=== PATIENT | male | born 1955 | race Caucasian/White ===

== ENCOUNTER → 2017-03-22 | Outpatient (CLI) | payer OTHER ==
--- NOTE | 2017-03-22 23:11 | MR ---
EXAMINATION TYPE: MR brain wo/w con DATE OF EXAM: 03/22/2017 COMPARISON: NONE HISTORY: Frequent headaches, rt sided hearing loss, tinnitus TECHNIQUE: Multiplanar, multisequence images of the brain and brainstem is performed without and with IV contras t, utilizing 9 mL intravenous Gadavist . FINDINGS: Diffusion weighted images demonstrate no evidence of a recent infarct or other diffusion ab normality. There is no extra-axial fluid collection or significant white matter signal abnormality. The ventricular system and cisternal spaces are normal in size and appearance. The brain volume is age appropriate. Midline structures demonstrate normal morphology. The craniocervical junction appears within normal limits. Post contrast images demonstrate no abnormal enhancement. The dural venous sinuses appear pa tent. The visualized sinuses are clear and the globes are intact. No suspicious fluid signal there is seen at level of mastoid air cells bilaterally. IMPRESSION: No significant finding is seen to account for patient's symptoms.
== END | disposition home or self-care (01) ==
LOC: RADMRIMAIN 14:06
PROVIDERS: ATTEND Family Medicine
DX: H91.91 Unspecified hearing loss, right ear (principal)
CPT/HCPCS: 82565; 70553; 36415; A9581

== ENCOUNTER 2023-06-13 08:11 | Inpatient (IN) | payer MEDICARE, OTHER ==
[2023-06-13 09:17] LABS: INR 1.2 (<1.2); Partial Thromboplastin Time 24.2 sec (22.0-30.0); Prothrombin Time 12.9 sec (10.0-12.5)
[2023-06-13 09:24] LABS: ALT 15 U/L (4-49); AST 36 U/L (17-59); African American GFR (CKD) >90 (>60 ml/min/1.73 sqM); Albumin 3.1 g/dL (3.5-5.0); Alkaline Phosphatase 75 U/L (38-126); Anion Gap 4 mmol/L; Blood Urea Nitrogen 7 mg/dL (9-20); Calcium 8.3 mg/dL (8.4-10.2); Carbon Dioxide 24 mmol/L (22-30); Chloride 104 mmol/L (98-107); Glucose 101 mg/dL (74-99); Magnesium 1.6 mg/dL (1.6-2.3); Non-African American GFR(CKD) >90 (>60 ml/min/1.73 sqM); Potassium 3.4 mmol/L (3.5-5.1); Sodium 132 mmol/L (137-145); Total Bilirubin 1.5 mg/dL (0.2-1.3); Total Protein 5.3 g/dL (6.3-8.2)
--- NOTE | 2023-06-13 09:29 | XR ---
EXAMINATION TYPE: XR chest 2V DATE OF EXAM: 06/13/2023 COMPARISON: 09/17/2010 TECHNIQUE: PA and lateral views submitted. HISTORY: Weakness FINDINGS: The lungs are clear and there is no pneumothorax, pleural effusion, or focal pneumonia. Heart size normal and no overt failure. Osseous structures demonstrate hypertrophic and degenerative changes of the spine. Hyperinflation suggestive of COPD. Diffuse osteopenia throughout the shoulder. IMPRESSION: 1. No acute process.
[2023-06-13 09:44] LABS: Anisocytosis Moderate; Basophils % (A) 0 %; Eosinophils # (A) 0.2 k/uL (0-0.7); Eosinophils % (A) 4 %; Lymphocytes # (A) 1.5 k/uL (1.0-4.8); Lymphocytes % (A) 34 %; MCHC 35.1 g/dL (31.0-37.0); MCV 129.5 fL (80.0-100.0); Macrocytosis Marked; Mean Platelet Volume 9.5; Monocytes # (A) 0.2 k/uL (0-1.0); Monocytes % (A) 4 %; Neutrophils # (A) 2.3 k/uL (1.3-7.7); Neutrophils % (A) 56 %; Platelet Count 142 k/uL (150-450); RBC 1.34 m/uL (4.30-5.90); WBC 4.2 k/uL (3.8-10.6)
[2023-06-13 09:45] LABS: MCH 45.4 pg (25.0-35.0)
[2023-06-13 09:46] LABS: HCT 17.3 % (39.0-53.0); HGB 6.1 gm/dL (13.0-17.5)
[2023-06-13 10:14] LABS: Poikilocytosis (M) Present; RBC Fragments Present; Tear Drop Cells Present
--- NOTE | 2023-06-13 10:27 | ED ---
General Adult HPI - General Chief complaint: Recheck/Abnormal Lab/Rx Stated complaint: abn labs Time Seen by Provider: 06/13/23 08:20 Source: patient, RN notes reviewed, old records reviewed Mode of arrival: wheelchair Limitations: no limitations - History of Present Illness Initial comments: 67-year-old male presents emergency department with family for evaluation of abnormal labs. Patient states that he went to urgent care/new PCP on Monday as family is concerned about his increasing weakness he received a phone call today stating that his hemoglobin was very low. Patient states he has had no rectal bleeding denies any melanotic stools. Denies chest pain shortness of breath he states he is very weak and complains of leg pain, neuropathy type pain. Patient states that he used to be on medications for his cardiac stents, hypertension hyperlipidemia but states that has not seen a PCP in several years. - Related Data Home Medications Medication Instructions Recorded Confirmed No Known Home Medications 06/13/23 06/13/23 Allergies Allergy/AdvReac Type Severity Reaction Status Date / Time No Known Allergies Allergy Verified 06/13/23 10:32 Review of Systems ROS Statement: Those systems with pertinent positive or pertinent negative responses have been documented in the HPI. ROS Other: All systems not noted in ROS Statement are negative. Past Medical History Past Medical History: GERD/Reflux, Hyperlipidemia, Hypertension, Myocardial Infarction ([place]) Additional Past Medical History / Comment(s): ARTHRITIS Last Myocardial Infarction Date:: 2011 History of Any Multi-Drug Resistant Organisms: None Reported Past Surgical History: Heart Catheterization With Stent Additional Past Surgical History / Comment(s): HEART STENTS X2 Additional Past Anesthesia/Blood Transfusion Reaction / Comment(s): NEVER HAS HAD GENERAL ANESTHESIA Date of Last Stent Placement:: 2011 Past Alcohol Use History: None Reported Past Drug Use History: None Reported - Past Family History Father Family Medical History: Cancer Additional Family Medical History / Comment(s): COLON General Exam Limitations: no limitations General appearance: alert, in no apparent distress Head exam: Present: atraumatic, normocephalic, normal inspection Eye exam: Present: normal appearance, PERRL, EOMI. Absent: scleral icterus, conjunctival injection, periorbital swelling ENT exam: Present: normal exam, normal oropharynx, mucous membranes moist Neck exam: Present: normal inspection, full ROM. Absent: tenderness, mening ismus, lymphadenopathy Respiratory exam: Present: normal lung sounds bilaterally. Absent: respiratory distress, wheezes, rales, rhonchi, stridor Cardiovascular Exam: Present: regular rate, normal rhythm, normal heart sounds. Absent: systolic murmur, diastolic murmur, rubs, gallop, clicks GI/Abdominal exam: Present: soft, normal bowel sounds. Absent: distended, tenderness, guarding, rebound, rigid Course Vital Signs 06/13/23 06/13/23 06/13/23 08:12 12:41 12:50 Temperature 98.6 F 99.0 F 98.3 F Pulse Rate 89 77 75 Respiratory 16 16 13 Rate Blood Pressure 126/70 122/61 121/57 O2 Sat by Pulse 98 99 98 Oximetry 06/13/23 06/13/23 06/13/23 12:56 13:01 15:07 Temperature 98.8 F 98.2 F Pulse Rate 75 75 73 Respiratory 14 14 14 Rate Blood Pressure 119/57 124/59 119/51 O2 Sat by Pulse 97 99 98 Oximetry EKG Findings - EKG Comments: EKG Findings:: EKG performed at 8: 49 sinus rhythm, noted PVCs nonspecific ST changes noted rate of 84 IN 154 QRS 88 QT/QTc 375/417 - EKG Results: EKG: interpreted by LOVELY Medical Decision Making - Medical Decision Making Was pt. sent in by a medical professional or institution (KAREN Nye, WORT EXTRACTOR, urgent care, hospital, or long-term...) When possible be specific @ -Urgent care Did you speak to anyone other than the patient for history (EMS, parent, family, police, friend...)? What history was obtained from this source @ -No Did you review nursing and triage notes (agree or disagree)? Why? @ -I reviewed and agree with nursing and triage notes Were old charts reviewed (outside hosp., previous admission, EMS record, old EKG, old radiological studies, urgent care reports/EKG's, long-term records)? Report findings @ -No old charts were reviewed Differential Diagnosis (chest pain, altered mental status, abdominal pain women, abdominal pain men, vaginal bleeding, weakness, fever, dyspnea, syncope, headache, dizziness, GI bleed, back pain, seizure, CVA, palpatations, mental health, musculoskeletal)? @ -Differential Weakness: Hypoglycemia, shock, sepsis, hyponatremia, anemia, infection, [place], ETOH, adverse medicine reaction, overdose, stroke, this is not meant to be an all-inclusive list. EKG interpreted by me (3pts min.). @ -As above X-rays interpreted by me (1pt min.). @ -Chest X shows chronic changes CT interpreted by me (1pt min.). @ -CT ab pelvis showing no acute intra-abdominal process U/S interpreted by me (1pt. min.). @ -None done What testing was considered but not performed or refused? (CT, X-rays, U/S, la bs)? Why? @ -None What meds were considered but not given or refused? Why? @ -None Did you discuss the management of the patient with other professionals (professionals i.e. , PA, WORT EXTRACTOR, lab, RT, psych nurse, perinatal social worker, regional guide, teacher, operations officer trust department, case liner)? Give summary @ -Dr. Dutton for admission Was smoking cessation discussed for >3mins.? @ -No Was critical care preformed (if so, how long)? @ -35 minutes Were there social determinants of health that impacted care today? How? (H omelessness, low income, unemployed, alcoholism, drug addiction, transportation, low edu. Level, literacy, decrease access to med. care, residential, rehab)? @ -No Was there de-escalation of care discussed even if they declined (Discuss DNR or withdrawal of care, Hospice)? DNR status @ -No What co-morbidities impacted this encounter? (DM, HTN, Smoking, COPD, CAD, Cancer, CVA, ARF, Chemo, Hep., AIDS, mental health diagnosis, sleep apnea, morbid obesity)? @ -None Was patient admitted / discharged? Hospital course, mention meds given and route, prescriptions, significant lab abnormalities, going to OR and other pertinent info. @ -Head of patient's 5 significant anemia Hemoccult negative patient has ab normal differential on CBC concerning for mild proliferate or mild dysplastic disease Undiagnosed new problem with uncertain prognosis? @ -No Drug Therapy requiring intensive monitoring for toxicity (Heparin, Nitro, Insulin, Cardizem)? @ -No Were any procedures done? @ -No Diagnosis/symptom? @ -Anemia Acute, or Chronic, or Acute on Chronic? @ -Acute Uncomplicated (without systemic symptoms) or Complicated (systemic symptoms)? @ -Complicated Side effects of treatment? @ -No Exacerbation, Progression, or Severe Exacerbation? @ -No Poses a threat to life or bodily function? How? (Chest pain, [place], [place], pneumonia, PE, COPD, DKA, ARF, appy, cholecystitis, CVA, Diverticulitis, Homicidal, Suicidal, threat to staff... and all critical care pts) @ -Yes anemia - Lab Data Result diagrams: 06/13/23 08:52 06/13/23 08:52 Lab Results 06/13/23 06/13/23 06/13/23 Range/Units 08:48 08:49 08:52 WBC 4.2 (3.8-10.6) k/uL RBC 1.34 L (4.30-5.90) m/uL Hgb 6.1 L* (13.0-17.5) gm/dL Hct 17.3 L* (39.0-53.0) % MCV 129.5 H (80.0-100.0) fL MCH 45.4 H (25.0-35.0) pg MCHC 35.1 (31.0-37.0) g/dL RDW 22.0 H (11.5-15.5) % Plt Count 142 L (150-450) k/uL MPV 9.5 Neutrophils % 56 % Lymphocytes % 34 % Monocytes % 4 % Eosinophils % 4 % Basophils % 0 % Neutrophils # 2.3 (1.3-7.7) k/uL Lymphocytes # 1.5 (1.0-4.8) k/uL Monocytes # 0.2 (0-1.0) k/uL Eosinophils # 0.2 (0-0.7) k/uL Basophils # 0.0 (0-0.2) k/uL Manual Slide Review Performed Poikilocytosis (manual Present Anisocytosis Moderate Macrocytosis Marked A Tear Drop Cells Present Fragmented RBCs Present PT (10.0-12.5) sec INR (<1.2) APTT (22.0-30.0) sec Sodium (137-145) mmol/L Potassium (3.5-5.1) mmol/L Chloride (98-107) mmol/L Carbon Dioxide (22-30) mmol/L Anion Gap mmol/L BUN (9-20) mg/dL Creatinine (0.66-1.25) mg/dL Est GFR (CKD-EPI)AfAm (>60 ml/min/1.73 sqM) Est GFR (CKD-EPI)NonAf (>60 ml/min/1.73 sqM) Glucose (74-99) mg/dL Plasma Lactic Acid Viet (0.7-2.0) mmol/L Calcium (8.4-10.2) mg/dL Magnesium (1.6-2.3) mg/dL Total Bilirubin (0.2-1.3) mg/dL AST (17-59) U/L ALT (4-49) U/L Alkaline Phosphatase (38-126) U/L Troponin I (0.000-0.034) ng/mL Total Protein (6.3-8.2) g/dL Albumin (3.5-5.0) g/dL Stool Occult Blood (Negative) Blood Type O Positive Blood Type Confirm O Positive Blood Type Recheck No Previous Record Bld Type Recheck Status CABO Indicated Antibody Screen NEGATIVE Crossmatch See Detail Spec Expiration Date 06/16/2023 - 235106/13/23 06/13/23 06/13/23 Range/Units 08:52 08:52 08:52 WBC (3.8-10.6) k/uL RBC (4.30-5.90) m/uL Hgb (13.0-17.5) gm/dL Hct (39.0-53.0) % MCV (80.0-100.0) fL MCH (25.0-35.0) pg MCHC (31.0-37.0) g/dL RDW (11.5-15.5) % Plt Count (150-450) k/uL MPV Neutrophils % % Lymphocytes % % Monocytes % % Eosinophils % % Basophils % % Neutrophils # (1.3-7.7) k/uL Lymphocytes # (1.0-4.8) k/uL Monocytes # (0-1.0) k/uL Eosinophils # (0-0.7) k/uL Basophils # (0-0.2) k/uL Manual Slide Review Poikilocytosis (manual Anisocytosis Macrocytosis Tear Drop Cells Fragmented RBCs PT 12.9 H (10.0-12.5) sec INR 1.2 H (<1.2) APTT 24.2 (22.0-30.0) sec Sodium 132 L (137-145) mmol/L Potassium 3.4 L (3.5-5.1) mmol/L Chloride 104 (98-107) mmol/L Carbon Dioxide 24 (22-30) mmol/L Anion Gap 4 mmol/L BUN 7 L (9-20) mg/dL Creatinine 0.55 L (0.66-1.25) mg/dL Est GFR (CKD-EPI)AfAm >90 (>60 ml/min/1.73 sqM) Est GFR (CKD-EPI)NonAf >90 (>60 ml/min/1.73 sqM) Glucose 101 H (74-99) mg/dL Plasma Lactic Acid Viet 1.6 (0.7-2.0) mmol/L Calcium 8.3 L (8.4-10.2) mg/dL Magnesium 1.6 (1.6-2.3) mg/dL Total Bilirubin 1.5 H (0.2-1.3) mg/dL AST 36 (17-59) U/L ALT 15 (4-49) U/L Alkaline Phosphatase 75 (38-126) U/L Troponin I (0.000-0.034) ng/mL Total Protein 5.3 L (6.3-8.2) g/dL Albumin 3.1 L (3.5-5.0) g/dL Stool Occult Blood (Negative) Blood Type Blood Type Confirm Blood Type Recheck Bld Type Recheck Status Antibody Screen Crossmatch Spec Expiration Date 06/13/23 06/13/23 Range/Units 08:52 14:03 WBC (3.8-10.6) k/uL RBC (4.30-5.90) m/uL Hgb (13.0-17.5) gm/dL Hct (39.0-53.0) % MCV (80.0-100.0) fL MCH (25.0-35.0) pg MCHC (31.0-37.0) g/dL RDW (11.5-15.5) % Plt Count (150-450) k/uL MPV Neutrophils % % Lymphocytes % % Monocytes % % Eosinophils % % Basophils % % Neutrophils # (1.3-7.7) k/uL Lymphocytes # (1.0-4.8) k/uL Monocytes # (0-1.0) k/uL Eosinophils # (0-0.7) k/uL Basophils # (0-0.2) k/uL Manual Slide Review Poikilocytosis (manual Anisocytosis Macrocytosis Tear Drop Cells Fragmented RBCs PT (10.0-12.5) sec INR (<1.2) APTT (22.0-30.0) sec Sodium (137-145) mmol/L Potassium (3.5-5.1) mmol/L Chloride (98-107) mmol/L Carbon Dioxide (22-30) mmol/L Anion Gap mmol/L BUN (9-20) mg/dL Creatinine (0.66-1.25) mg/dL Est GFR (CKD-EPI)AfAm (>60 ml/min/1.73 sqM) Est GFR (CKD-EPI)NonAf (>60 ml/min/1.73 sqM) Glucose (74-99) mg/dL Plasma Lactic Acid Viet (0.7-2.0) mmol/L Calcium (8.4-10.2) mg/dL Magnesium (1.6-2.3) mg/dL Total Bilirubin (0.2-1.3) mg/dL AST (17-59) U/L ALT (4-49) U/L Alkaline Phosphatase (38-126) U/L Troponin I <0.012 (0.000-0.034) ng/mL Total Protein (6.3-8.2) g/dL Albumin (3.5-5.0) g/dL Stool Occult Blood Negative (Negative) Blood Type Blood Type Confirm Blood Type Recheck Bld Type Recheck Status Antibody Screen Crossmatch Spec Expiration Date Critical Care Time Critical Care Time: Yes Total Critical Care Time: 35 Disposition Clinical Impression: Anemia, Weakness Disposition: ADMITTED IP TO THIS [facility] Condition: Fair Time of Disposition: 15:11
[2023-06-13] MEDS: HYDROmorphone 0.5 MG/0.5 ML SYRINGE IVP STA (11:18)
--- NOTE | 2023-06-13 12:19 | CT ---
EXAMINATION TYPE: CT abdomen pelvis w con CT DLP: 1194 mGycm, Automated exposure control for dose reduction was used. DATE OF EXAM: 06/13/2023 11:08 AM COMPARISON: None. CLINICAL INDICATION:Male, 67 years old with history of pain; abdominal pain. TECHNIQUE: Axial CT abdomen pelvis w con;Sagittal and coronal reformats were created on a separate w orkstation. Contrast used:100 mL of Isovue 300 with IV Contrast, (none if empty) Oral contrast used: without Oral Contrast (none if empty) FINDINGS: LOWER CHEST: Unremarkable ABDOMEN LIVER: Unremarkable GALLBLADDER AND BILE DUCTS: Unremarkable. PANCREAS: Unremarkable. SPLEEN: Unremarkable. ADRENAL GLANDS: Unremarkable. KIDNEYS AND URETERS: No benign-appearing cysts and require no follow-up. Otherwise no evidence of hyd ronephrosis or renal calculus. The ureters are unremarkable. PELVIS BLADDER: Unremarkable REPRODUCTIVE: Enlarged prostate ABDOMEN & PELVIS STOMACH AND BOWEL: Stomach and duodenum are unremarkable. Fluid-filled loops of bowel measuring up to 2.4 cm with questionably enhancing wall may indicate a mild enteritis.. No evidence of bowel obst ruction. PERITONEUM/RETROPERITONEUM: No evidence of pneumoperitoneum or free fluid. VASCULATURE: No evidence of aortic aneurysm. MUSCULOSKELETAL: No acute osseous abnormalities LYMPH NODES: No gross evidence for lymphadenopathy. SOFT TISSUE/ABDOMINAL WALL: Unremarkable IMPRESSION: 1. No definite CT evidence of acute process. 2. Nondilated, scattered, fluid-filled loops of bowel measuring up to 2.4 cm with questionably enhan cing wall may indicate a mild enteritis..
[2023-06-13] MEDS ORDERED: ACETAMINOPHEN TAB 325 MG TAB PO PRN (15:11)
[2023-06-13] MEDS ORDERED: NALOXONE 0.4 MG/ML 1 ML VIAL IV PRN (15:11)
[2023-06-13] MEDS ORDERED: ONDANSETRON 4 MG/2 ML VIAL IVP PRN (15:11)
[2023-06-13] MEDS: HYDROmorphone 0.5 MG/0.5 ML SYRINGE IVP PRN (17:47)
[2023-06-13] MEDS ORDERED: NICOTINE GUM (POLACRILEX) 2 MG GUM BUCCAL PRN (19:36)
[2023-06-13] MEDS ORDERED: MELATONIN 3 MG TABLET PO PRN (19:36)
[2023-06-13] MEDS ORDERED: LORazepam 0.5 MG TAB PO PRN (19:37)
[2023-06-13] MEDS ORDERED: LORazepam 2 MG/ML INJ IV PRN (19:37)
[2023-06-13] MEDS ORDERED: LORazepam 1 MG TAB PO PRN ×3 (19:37)
--- NOTE | 2023-06-13 19:41 | P.HPIM ---
History of Present Illness H&P Date: 06/13/23 Patient is a 67-year-old male with hypertension, dyslipidemia, coronary artery disease status post stenting, and GERD who has not seen a PCP in several years prior to last week who presented to the hospital at the direction of his outpatient physician due to to low blood counts. On arrival to the ER here his vitals were within normal limits. Laboratory analysis included CBC, coagulation studies, CMP, and troponin which were remarkable for hemoglobin 6.1, hematocrit 17.3, platelet count of 142, INR 1.2, sodium 132, potassium 3.4, and bilirubin of 1.5. Fecal occult blood testing was negative. Patient underwent CT abdomen and pelvis which was unremarkable for nondilated fluid-filled bowel loops measuring up to 2.4 cm possible enhancing wall indicating enteritis. Chest x- ray demonstrated no acute process. EKG demonstrated sinus rhythm at a rate of [address]-T wave changes. Patient was ordered 1 unit of packed red blood cells. He was given 1 dose of Dilaudid. Arrangements were made for admission. Patient seen and examined at bedside. He reports that he is no longer sees a doctor because he was frustrated that nobody could figure out the pain in his legs. He reports that for the last several years he has had pain in his legs. He has decreased sensation generally but when he gets up and tries to walk he gets excruciating pain in his legs and into his bones. He can walk to the bathroom and then back to his bedroom until becomes so unbearable that he can no longer move. He states that he does not lift his legs over the side of the bed long enough to know if they would become purple. He has not left his house in the last year and a half to the excruciating pain from walking. His daughter has been caring for him. She became so concerned about his lack of mobility that she subsequently brought him to urgent care on Monday. He reports that he sometimes gets lightheaded and short of breath when he walks. He denies any syncopal episodes or overt chest pain. He does suffer from GERD and has acid reflux if he does not take his Prilosec at night which he has been taking [id number]. He does drink approximately 1 pint daily and smokes 1 pack of cigarettes. He has not had a colonoscopy recently. He denies any bright red blood in his stools or dark tarry stools. He denies any known history of anemia. He is very frustrated with his overall state of health and the pain in his legs. He does have a history of coronary artery disease in the past. But no longer is taking medications for this. Vital signs reviewed General: nontoxic, no distress, appears older than stated age Derm: warm, dry, skin thickening bilateral lower extremities, redness bilateral toes, loss of hair bilateral lower extremities Eyes: EOMI, no lid lag, anicteric sclera, pupils equal round reactive to light ENT: Nose and ears atraumatic Cardiovascular: S1S2 reg, no murmur, no edema, nonpalpable dorsalis pedis and posterior tibial pulses, dopplerable dorsalis pedis pulses bilaterally Lungs: clear to auscultation bilateral, no rhonchi, no rales, no wheeze, no accessory muscle use Abdominal: soft, nontender to palpation, no guarding Ext: no gross muscle atrophy, no contractures Neuro: CN II-XII grossly intact, No focal neuro deficits Psych: Alert, oriented, appropriate affect Assessment/Plan: Symptomatic anemia GERD Suspect alcoholic gastritis based on CT scan Claudication suspect severe peripheral arterial disease Intractable pain when standing -Start IV Protonix 40 mg twice daily -Consult oncology -Consult surgery regarding possible EGD -Check retook, haptoglobin, LDH, ferritin, iron studies, B12, folic acid, and TSH -Status post 1 unit of packed red blood cells. Recheck CBC now and in a.m. -Consult vascular surgery -At this time will avoid aspirin due to possible occult GI bleeding -Start Neurontin 300 mg oral 3 times daily, [place] 5/325 every 4 hours as needed for moderate pain, and Dilaudid 0.5 mg every 3 hours as needed for severe pain Nicotine dependency -Nicotine patch 14 mcg daily, nicotine gum 2 mg every 2 hours as needed for nicotine cravings Alcohol dependency -Start oral CIWA protocol with Ativan dosing per CIWA scale, thiamine 100 mg daily, folic acid 1 mg daily History of but not currently taking medications for: Hypertension Dyslipidemia Coronary artery disease status post stenting Imaging: As per HPI Data Review: As per HPI The patient is admitted with an anticipated greater than 2 midnight stay for evaluation of symptomatic anemia. Surrogate decision-maker: Chiquita DVT prophylaxis: Heparin Anticipated discharge date: Pending clinical course Anticipated discharge place: Pending clinical course This dictation was prepared using [employer] voice recognition software. Though every attempt is made to correct errors during dictation some may still exist. Past Medical History Past Medical History: GERD/Reflux, Hyperlipidemia, Hypertension, Myocardial Infarction ([place]) Additional Past Medical History / Comment(s): ARTHRITIS Last Myocardial Infarction Date:: 2011 History of Any Multi-Drug Resistant Organisms: None Reported Past Surgical History: Heart Catheterization With Stent Additional Past Surgical History / Comment(s): HEART STENTS X2 Additional Past Anesthesia/Blood Transfusion Reaction / Comment(s): NEVER HAS HAD GENERAL ANESTHESIA Date of Last Stent Placement:: 2011 Smoking Status: Current every day smoker Past Alcohol Use History: Daily Past Drug Use History: None Reported - Past Family History Father Family Medical History: Cancer Additional Family Medical History / Comment(s): COLON Medications and Allergies Home Medications Medication Instructions Recorded Confirmed Type No Known Home Medications 06/13/23 06/13/23 History Allergies Allergy/AdvReac Type Severity Reaction Status Date / Time No Known Allergies Allergy Verified 06/13/23 10:32 Physical Exam Osteopathic Statement: *. No significant issues noted on an osteopathic structural exam other than those noted in the History and Physical/Consult. Vitals: Vital Signs Temp Pulse Resp BP Pulse Ox 06/13/23 16:00 98.1 F 68 11 L 134/60 99 06/13/23 15:07 73 14 119/51 98 06/13/23 15:00 73 7 L 119/51 98 06/13/23 14:00 72 16 126/58 97 06/13/23 13:01 98.2 F 75 14 124/59 99 06/13/23 13:00 74 7 L 119/57 96 06/13/23 12:56 98.8 F 75 14 119/57 97 06/13/23 12:50 98.3 F 75 13 121/57 98 06/13/23 12:41 99.0 F 77 16 122/61 99 06/13/23 08:12 98.6 F 89 16 126/70 98 Intake and Output 06/13/23 06/13/23 06/13/23 06:59 14:59 22:59 Intake Total 0 276 Balance 0 276 Intake: Blood Product 0 276 Rc Pheresis 2 As3 Unit 0 276 [id number] Other: Weight 81.647 kg Results CBC & Chem 7: 06/13/23 08:52 06/13/23 08:52 Labs: Abnormal Lab Results - Last 24 Hours (Table) 06/13/23 06/13/23 06/13/23 Range/Units 08:48 08:52 08:52 RBC 1.34 L (4.30-5.90) m/uL Hgb 6.1 L* (13.0-17.5) gm/dL Hct 17.3 L* (39.0-53.0) % MCV 129.5 H (80.0-100.0) fL MCH 45.4 H (25.0-35.0) pg RDW 22.0 H (11.5-15.5) % Plt Count 142 L (150-450) k/uL Macrocytosis Marked A PT 12.9 H (10.0-12.5) sec INR 1.2 H (<1.2) Sodium (137-145) mmol/L Potassium (3.5-5.1) mmol/L BUN (9-20) mg/dL Creatinine (0.66-1.25) mg/dL Glucose (74-99) mg/dL Calcium (8.4-10.2) mg/dL Total Bilirubin (0.2-1.3) mg/dL Total Protein (6.3-8.2) g/dL Albumin (3.5-5.0) g/dL Crossmatch See Detail 06/13/23 Range/Units 08:52 RBC (4.30-5.90) m/uL Hgb (13.0-17.5) gm/dL Hct (39.0-53.0) % MCV (80.0-100.0) fL MCH (25.0-35.0) pg RDW (11.5-15.5) % Plt Count (150-450) k/uL Macrocytosis PT (10.0-12.5) sec INR (<1.2) Sodium 132 L (137-145) mmol/L Potassium 3.4 L (3.5-5.1) mmol/L BUN 7 L (9-20) mg/dL Creatinine 0.55 L (0.66-1.25) mg/dL Glucose 101 H (74-99) mg/dL Calcium 8.3 L (8.4-10.2) mg/dL Total Bilirubin 1.5 H (0.2-1.3) mg/dL Total Protein 5.3 L (6.3-8.2) g/dL Albumin 3.1 L (3.5-5.0) g/dL Crossmatch
[2023-06-13 20:15] LABS: Anisocytosis Marked; HCT 22.6 % (39.0-53.0); HGB 7.5 gm/dL (13.0-17.5); MCH 40.1 pg (25.0-35.0); MCHC 33.3 g/dL (31.0-37.0); Macrocytosis Marked; Platelet Count 138 k/uL (150-450); Poikilocytosis Slight; RBC 1.88 m/uL (4.30-5.90); Reticulocyte % 0.7 % (0.5-2.0); WBC 4.2 k/uL (3.8-10.6)
[2023-06-13 20:44] LABS: MCV 120.3 fL (80.0-100.0); RDW 28.1 % (11.5-15.5)
[2023-06-13 20:45] LABS: LDH 1754 U/L (120-246)
[2023-06-13] MEDS: PANTOPRAZOLE 40 MG/10 ML VIAL IV SCH (21:36)
[2023-06-13] MEDS: DEXTROSE 5%-0.45% NACL 1,000 ML IV SCH (21:40)
[2023-06-13] MEDS: HYDROcodone/APAP 5-325MG 1 EACH TAB PO PRN (21:47)
[2023-06-14] MEDS: HYDROmorphone 0.5 MG/0.5 ML SYRINGE IVP PRN (00:59)
[2023-06-14] MEDS: HEPARIN SODIUM,PORCINE 5,000 UNIT/ML 1 ML VIAL SQ SCH (01:07)
[2023-06-14 03:38] LABS: % Iron Saturation 83.27 (15.00-50.00); Iron 224 UG/DL (65-175); Total Iron Binding Capacity 269 UG/DL (228-460)
[2023-06-14] MEDS: THIAMINE 100 MG TAB PO SCH (08:12)
[2023-06-14] MEDS: NICOTINE 14MG/24HR PATCH TRANSDERM SCH (08:12)
[2023-06-14] MEDS: FOLIC ACID 1 MG TAB PO SCH (08:12)
[2023-06-14] MEDS ORDERED: PANTOPRAZOLE 40 MG/10 ML VIAL IV SCH (09:00)
[2023-06-14 09:47] LABS: Anisocytosis Marked; HCT 20.7 % (39.0-53.0); Hypochromasia Slight; MCH 40.6 pg (25.0-35.0); MCHC 33.3 g/dL (31.0-37.0); MCV 122.1 fL (80.0-100.0); Macrocytosis Marked; Mean Platelet Volume 10.3; Platelet Count 138 k/uL (150-450); Poikilocytosis Slight; RBC 1.69 m/uL (4.30-5.90); WBC 4.1 k/uL (3.8-10.6)
[2023-06-14 09:52] LABS: INR 1.3 (<1.2); Prothrombin Time 13.8 sec (10.0-12.5)
[2023-06-14 10:02] LABS: RDW 27.3 % (11.5-15.5)
[2023-06-14 10:04] LABS: HGB 6.9 gm/dL (13.0-17.5)
[2023-06-14 10:05] LABS: ALT 16 U/L (4-49); AST 46 U/L (17-59); African American GFR (CKD) >90 (>60 ml/min/1.73 sqM); Alkaline Phosphatase 63 U/L (38-126); Anion Gap 2 mmol/L; Blood Urea Nitrogen 6 mg/dL (9-20); Calcium 8.3 mg/dL (8.4-10.2); Carbon Dioxide 25 mmol/L (22-30); Chloride 106 mmol/L (98-107); Glucose 93 mg/dL (74-99); Non-African American GFR(CKD) >90 (>60 ml/min/1.73 sqM); Potassium 3.6 mmol/L (3.5-5.1); Sodium 133 mmol/L (137-145); Total Bilirubin 1.7 mg/dL (0.2-1.3); Total Protein 5.3 g/dL (6.3-8.2)
--- NOTE | 2023-06-14 10:22 | P.GSCN ---
History of Present Illness Consult date: 06/14/23 History of present illness: CHIEF COMPLAINT: Weakness HISTORY OF PRESENT ILLNESS: This is a 67-year-old male who presented with weakness and leg pain. Patient was brought in due to low hemoglobin outpatient. Hemoglobin on admission 6.1. He did receive a unit of blood hemoglobin is now up to 7.5. Patient does have a active history of alcohol use disorder he drinks a pint every 2 days. He denies any abdominal pain. Denies any nausea or vomiting. Denies any blood in his stools denies any melanotic stools. Patient reports his bowel movements have been regular. He has never had a EGD. He reports his last colonoscopy was 6 years ago and reports normal findings. The last colonoscopy in the computer was from 2013 does report normal-appearing colon from rectum to cecum and a 5 mm rectal polyp. Patient reports he has not seen a physician in multiple years. He is not currently on any blood thinners. PAST MEDICAL HISTORY: See below PAST SURGICAL HISTORY: See below MEDICATIONS: See below ALLERGIES: See below SOCIAL HISTORY: No illicit drug use. REVIEW OF SYSTEMS: CONSTITUTIONAL: Denies fever or chills. HEENT: Denies blurred vision, vision changes, or eye pain. Denies hemoptysis CARDIOVASCULAR: Denies chest pain or pressure. RESPIRATORY: No shortness of breath. GASTROINTESTINAL: See HPI for pertinent findings HEMATOLOGIC: Denies bleeding disorders. GENITOURINARY: Denies any blood in urine or increased urinary frequency. SKIN: Denies pruitis. Denies rash. PHYSICAL EXAM: VITAL SIGNS: Reviewed GENERAL: no acute distress. Pale ABDOMEN: Soft. Nondistended. Nontender NEUROLOGIC: Alert and oriented. Cranial nerves II through XII grossly intact. SKIN: pale LABORATORY DATA: WBC 4.1 Hgb 6.1 up to 7.5 currently 6.9 platelets 138 INR 1.3 MCV elevated at 122 Sodium is 133 potassium 3.6 creatinine 0.53 Iron level 224 Total bili 1.7 AST 46 ALT 16 alk phos 63 B12 275 Stool for occult blood negative IMAGING: CT scan abdomen pelvis reports no definite acute process. Nondilated scattered fluid-filled loops of bowel measuring up to 2.4 cm with questionable enhancing wall may indicate a mild enteritis ASSESSMENT: 1. Symptomatic anemia requiring blood transfusion. No active bleeding reported 2. Possible enteritis noted on CT scan 3. Alcohol use disorder PLAN: -Patient scheduled for EGD and colonoscopy tomorrow with Dr. Wells -Start clear liquid diet -Start GoLytely bowel prep -N.p.o. after midnight -Continue to monitor hemoglobin -Recommend to transfuse as needed for HGB less than 7 -Continue to monitor for any signs or symptoms of bleeding -Continue PPI -Recommend alcohol cessation -Leg pain, possible PAD being evaluated by vascular surgery Physician Agriculture Teacher note has been reviewed by physician. Signing provider agrees with the documented findings, assessment, and plan of care. I have personally seen and examined the patient, reviewed the EXECUTIVE COACH /PAs history, exam and MDM and agree with the assessment and plan as written. Based on total visit time, I have performed more than 50% of the visit. As above: Patient admitted for anemia. Underwent transfusion. No active GI bleed noted. We were consulted for endoscopic evaluation. Will proceed with upper and lower endoscopy tomorrow. Continue antiacids for now. Past Medical History Past Medical History: GERD/Reflux, Hyperlipidemia, Hypertension, Myocardial Infarction ([place]) Additional Past Medical History / Comment(s): ARTHRITIS Last Myocardial Infarction Date:: 2011 History of Any Multi-Drug Resistant Organisms: None Reported Past Surgical History: Heart Catheterization With Stent Additional Past Surgical History / Comment(s): HEART STENTS X2 Additional Past Anesthesia/Blood Transfusion Reaction / Comm: NEVER HAS HAD GENERAL ANESTHESIA Date of Last Stent Placement:: 2011 Smoking Status: Current every day smoker Past Alcohol Use History: Daily Past Drug Use History: None Reported - Past Family History Father Family Medical History: Cancer Additional Family Medical History / Comment(s): COLON Medications and Allergies Home Medications Medication Instructions Recorded Confirmed Type No Known Home Medications 06/13/23 06/13/23 History Allergies Allergy/AdvReac Type Severity Reaction Status Date / Time No Known Allergies Allergy Verified 06/13/23 10:32 Surgical - Exam Vital Signs Temp Pulse Resp BP Pulse Ox 98.6 F 89 16 126/70 98 06/13/23 08:12 06/13/23 08:12 06/13/23 08:12 06/13/23 08:12 06/13/23 08:12 Results - Labs 06/14/23 09:18 06/14/23 09:18 Abnormal Lab Results - Last 24 Hours (Table) 06/13/23 06/13/23 06/13/23 Range/Units 08:48 20:03 20:03 RBC 1.88 L (4.30-5.90) m/uL Hgb 7.5 L (13.0-17.5) gm/dL Hct 22.6 L (39.0-53.0) % MCV 120.3 H D (80.0-100.0) fL MCH 40.1 H (25.0-35.0) pg RDW 28.1 H (11.5-15.5) % Plt Count 138 L (150-450) k/uL Macrocytosis Marked A Haptoglobin (31.2-198.0) mg/dL PT (10.0-12.5) sec INR (<1.2) Iron 224 H (65-175) UG/DL % Saturation 83.27 H (15.00-50.00) Transferrin 192.0 L (204.0-354.0) mg/dL Lactate Dehydrogenase 1754 H (120-246) U/L Crossmatch See Detail 06/13/23 06/14/23 Range/Units 20:03 09:18 RBC (4.30-5.90) m/uL Hgb (13.0-17.5) gm/dL Hct (39.0-53.0) % MCV (80.0-100.0) fL MCH (25.0-35.0) pg RDW (11.5-15.5) % Plt Count (150-450) k/uL Macrocytosis Haptoglobin <10.0 L (31.2-198.0) mg/dL PT 13.8 H (10.0-12.5) sec INR 1.3 H (<1.2) Iron (65-175) UG/DL % Saturation (15.00-50.00) Transferrin (204.0-354.0) mg/dL Lactate Dehydrogenase (120-246) U/L Crossmatch Thyroid panel 06/13/23 Range/Units 20:03 TSH 3.400 (0.465-4.680) mIU/L Pituitary panel 06/13/23 Range/Units 20:03 TSH 3.400 (0.465-4.680) mIU/L
--- NOTE | 2023-06-14 10:24 | P.GSCN ---
History of Present Illness Consult date: 06/14/23 Reason for Consult: PAD with claudication Requesting physician: Iris Penn History of present illness: This is a pleasant 67-year-old male with a past medical history including hypertension, hyperlipidemia, coronary artery disease status post stenting about 10 years ago, alcohol dependence and nicotine dependence who presented to the emergency department for abnormal blood work and weakness. Patient has been feeling weak and not really getting out of bed, his daughter was concerned and brought him to urgent care. He had blood work done was noted to be anemic. He was sent to the emergency department for further evaluation. Patient states he has severe leg pain down both legs, and is present lying down, sitting and worse with walking. States he is only able to make few steps to the bathroom and then he has to lay down in bed because the pain is so bad. States that he has had pain in his legs for the last 7 years. Apparently patient had made multiple complaints to his primary care provider in the past and there was no workup or improvement therefore he stopped going to see his PCP. He has not seen a physician in years. He has not left his house in the last 18 months due to pain and weakness. He does admit to drinking about a pint of liquor every other day and has been a heavy drinker for 40 years, he also smokes a pack of cigarettes a day for the last 27 years. He has not been on any medications. He denies any blood in his stool or black stool, no abdominal pain, nausea or vomiting. States he has chronic low back pain, arthritis in his back as well as slipped disks. He denies any wounds to his lower extremities. Also states he has little feeling in his feet. He currently denies any shortness of breath, chest pain, abdominal pain, nausea or vomiting. Hemoglobin was 2.1 on admission he was transfused with 1 unit of blood with a repeat hemoglobin of 7.5. Today he had another drop in his hemoglobin to 6.9. Review of Systems A 14 point review systems was completed all pertinent positives and negatives as stated in the HPI. Past Medical History Past Medical History: GERD/Reflux, Hyperlipidemia, Hypertension, Myocardial Infarction ([place]) Additional Past Medical History / Comment(s): ARTHRITIS Last Myocardial Infarction Date:: 2011 History of Any Multi-Drug Resistant Organisms: None Reported Past Surgical History: Heart Catheterization With Stent Additional Past Surgical History / Comment(s): HEART STENTS X2 Additional Past Anesthesia/Blood Transfusion Reaction / Comm: NEVER HAS HAD GENERAL ANESTHESIA Date of Last Stent Placement:: 2011 Smoking Status: Current every day smoker Past Alcohol Use History: Daily Past Drug Use History: None Reported - Past Family History Father Family Medical History: Cancer Additional Family Medical History / Comment(s): COLON Medications and Allergies Home Medications Medication Instructions Recorded Confirmed Type No Known Home Medications 06/13/23 06/13/23 History Allergies Allergy/AdvReac Type Severity Reaction Status Date / Time No Known Allergies Allergy Verified 06/13/23 10:32 Surgical - Exam Vital Signs Temp Pulse Resp BP Pulse Ox 98.6 F 89 16 126/70 98 06/13/23 08:12 06/13/23 08:12 06/13/23 08:12 06/13/23 08:12 06/13/23 08:12 General appearance: The patient is alert, oriented, appears in no acute distress. HET: Head is normocephalic and atraumatic. Pupils are equal and reactive. Neck: Supple. No carotid bruit. Heart: Regular. Lungs: Equal expansion, normal respiratory effort. Abdomen: Soft, nontender, nondistended. Extremities: Normal skin color and turgor. Bilateral feet cool to the touch good capillary refill. No wounds noted to lower extremities. Palpable bilateral femoral pulses, nonpalpable popliteal, PT and DP pulses. +2 radial pu lses. Neurological: No focal deficits. Alert and oriented x 3. Results - Labs 06/14/23 09:18 06/14/23 09:18 Abnormal Lab Results - Last 24 Hours (Table) 06/13/23 06/13/23 06/13/23 Range/Units 08:48 08:52 08:52 RBC 1.34 L (4.30-5.90) m/uL Hgb 6.1 L* (13.0-17.5) gm/dL Hct 17.3 L* (39.0-53.0) % MCV 129.5 H (80.0-100.0) fL MCH 45.4 H (25.0-35.0) pg RDW 22.0 H (11.5-15.5) % Plt Count 142 L (150-450) k/uL Macrocytosis Marked A Haptoglobin (31.2-198.0) mg/dL PT 12.9 H (10.0-12.5) sec INR 1.2 H (<1.2) Sodium (137-145) mmol/L Potassium (3.5-5.1) mmol/L BUN (9-20) mg/dL Creatinine (0.66-1.25) mg/dL Glucose (74-99) mg/dL Calcium (8.4-10.2) mg/dL Iron (65-175) UG/DL % Saturation (15.00-50.00) Transferrin (204.0-354.0) mg/dL Total Bilirubin (0.2-1.3) mg/dL Lactate Dehydrogenase (120-246) U/L Total Protein (6.3-8.2) g/dL Albumin (3.5-5.0) g/dL Crossmatch See Detail 06/13/23 06/13/23 06/13/23 Range/Units 08:52 20:03 20:03 RBC 1.88 L (4.30-5.90) m/uL Hgb 7.5 L (13.0-17.5) gm/dL Hct 22.6 L (39.0-53.0) % MCV 120.3 H D (80.0-100.0) fL MCH 40.1 H (25.0-35.0) pg RDW 28.1 H (11.5-15.5) % Plt Count 138 L (150-450) k/uL Macrocytosis Marked A Haptoglobin (31.2-198.0) mg/dL PT (10.0-12.5) sec INR (<1.2) Sodium 132 L (137-145) mmol/L Potassium 3.4 L (3.5-5.1) mmol/L BUN 7 L (9-20) mg/dL Creatinine 0.55 L (0.66-1.25) mg/dL Glucose 101 H (74-99) mg/dL Calcium 8.3 L (8.4-10.2) mg/dL Iron 224 H (65-175) UG/DL % Saturation 83.27 H (15.00-50.00) Transferrin 192.0 L (204.0-354.0) mg/dL Total Bilirubin 1.5 H (0.2-1.3) mg/dL Lactate Dehydrogenase 1754 H (120-246) U/L Total Protein 5.3 L (6.3-8.2) g/dL Albumin 3.1 L (3.5-5.0) g/dL Crossmatch 06/13/23 Range/Units 20:03 RBC (4.30-5.90) m/uL Hgb (13.0-17.5) gm/dL Hct (39.0-53.0) % MCV (80.0-100.0) fL MCH (25.0-35.0) pg RDW (11.5-15.5) % Plt Count (150-450) k/uL Macrocytosis Haptoglobin <10.0 L (31.2-198.0) mg/dL PT (10.0-12.5) sec INR (<1.2) Sodium (137-145) mmol/L Potassium (3.5-5.1) mmol/L BUN (9-20) mg/dL Creatinine (0.66-1.25) mg/dL Glucose (74-99) mg/dL Calcium (8.4-10.2) mg/dL Iron (65-175) UG/DL % Saturation (15.00-50.00) Transferrin (204.0-354.0) mg/dL Total Bilirubin (0.2-1.3) mg/dL Lactate Dehydrogenase (120-246) U/L Total Protein (6.3-8.2) g/dL Albumin (3.5-5.0) g/dL Crossmatch Diabetes panel 06/13/23 Range/Units 08:52 Sodium 132 L (137-145) mmol/L Potassium 3.4 L (3.5-5.1) mmol/L Chloride 104 (98-107) mmol/L Carbon Dioxide 24 (22-30) mmol/L BUN 7 L (9-20) mg/dL Creatinine 0.55 L (0.66-1.25) mg/dL Glucose 101 H (74-99) mg/dL Calcium 8.3 L (8.4-10.2) mg/dL AST 36 (17-59) U/L ALT 15 (4-49) U/L Alkaline Phosphatase 75 (38-126) U/L Total Protein 5.3 L (6.3-8.2) g/dL Albumin 3.1 L (3.5-5.0) g/dL Thyroid panel 06/13/23 Range/Units 20:03 TSH 3.400 (0.465-4.680) mIU/L Calcium panel 06/13/23 Range/Units 08:52 Calcium 8.3 L (8.4-10.2) mg/dL Albumin 3.1 L (3.5-5.0) g/dL Pituitary panel 06/13/23 06/13/23 Range/Units 08:52 20:03 Sodium 132 L (137-145) mmol/L Potassium 3.4 L (3.5-5.1) mmol/L Chloride 104 (98-107) mmol/L Carbon Dioxide 24 (22-30) mmol/L BUN 7 L (9-20) mg/dL Creatinine 0.55 L (0.66-1.25) mg/dL Glucose 101 H (74-99) mg/dL Calcium 8.3 L (8.4-10.2) mg/dL TSH 3.400 (0.465-4.680) mIU/L Adrenal panel 06/13/23 Range/Units 08:52 Sodium 132 L (137-145) mmol/L Potassium 3.4 L (3.5-5.1) mmol/L Chloride 104 (98-107) mmol/L Carbon Dioxide 24 (22-30) mmol/L BUN 7 L (9-20) mg/dL Creatinine 0.55 L (0.66-1.25) mg/dL Glucose 101 H (74-99) mg/dL Calcium 8.3 L (8.4-10.2) mg/dL Total Bilirubin 1.5 H (0.2-1.3) mg/dL AST 36 (17-59) U/L ALT 15 (4-49) U/L Alkaline Phosphatase 75 (38-126) U/L Total Protein 5.3 L (6.3-8.2) g/dL Albumin 3.1 L (3.5-5.0) g/dL - Imaging Comments: Chest x-ray reports no acute process CT abdomen pelvis with contrast no definite CT evidence of acute process. Nondilated scattered fluid-filled loops of bowel measuring up to 2.4 cm with questionable enhancing wall may indicate a mild enteritis Lower extremity arterial duplex: ABIs right 0.4, left 0.4 Findings are suggestive of severe to critical bilateral arthrosclerotic disease greater on the right and greater below the knee within the trifurcation vessels. The right TBI is 0. This should be correlated clinically. Assessment and Plan Assessment: 1. Symptomatic anemia 2. Chronic bilateral lower extremity pain, claudication 3. Peripheral arterial disease 4. History of hypertension 5. History of hyperlipidemia 6. History of coronary artery disease status post cardiac stents 7. Nicotine dependence 8. Alcohol abuse/dependence Plan: 1. Continue symptomatic and supportive treatment 2. Pain medication as needed 3. Lower extremity arterial ultrasound ordered and reviewed 4. Daily CBC, transfuse for hemoglobin less than 7 5. Monitor for alcohol withdrawal, CIWA protocol 6. Recommend alcohol abstinence 7. Recommend smoking cessation. Patient currently on nicotine patch and gum 8. General surgery is on for further workup for anemia. Patient is scheduled for EGD and colonoscopy tomorrow. 9. CT angiogram with runoff ordered 10. Further recommendations forthcoming per vascular surgeon 11. Rest of medical management per primary medical team Thank you for this consultation, we will continue to follow. The impression and plan of care has been dictated as directed. Dr. Bailey I performed a history and examination of this patient, discussed the same with the dictator. I agree with the dictator's note ,documented as a scribe. Any additional findings or plans will be noted.
--- NOTE | 2023-06-14 11:25 | US ---
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 Findings are suggestive of severe to critical bilateral atherosclerotic disease greater on the rig ht and greater below the knee within the trifurcation vessels. 2. The right TBI is 0. This should be correlated clinically. A Yellow level critical message alert has been initiated for Sandra Mc via the [facility] Critical Results System on 06/14/2023 11:23 AM. This message alert has been sent to Sandra Mc via the preferences provided by the clinician for the receipt of Radiology Critical Findings. Message ID [id number].
[2023-06-14] MEDS: PEG 3350 (236 GM/BTL) + LYTES 4,000 ML BOTTLE PO ONE (14:09)
--- NOTE | 2023-06-14 14:34 | CT ---
EXAMINATION TYPE: CT angio abd aorta w/Runoff CT DLP: 1540.7 mGycm, Automated exposure control for dose reduction was used. DATE OF EXAM: 06/14/2023 1:59 PM COMPARISON: . . CLINICAL INDICATION:Male, 67 years old with history of PAD, claudication, non palpable pulses; PHH, P AD, claudication, non palpable pulses TECHNIQUE: Multiple thin slice sub-millimeter images were obtained after administration of contrast. 3-D reconstructed images and maximum intensity projection images were obtained. CT angio abd aorta w /Runoff CT Contrast: Contrast used:100ml mL of Isovue 370 without and with IV Contrast, Oral contrast used: None FINDINGS: CTA Abdomen and pelvis: The abdominal aorta does not demonstrate aneurysmal dilatation. Atherosclero tic plaquing is identified within the abdominal aorta. The origins of the superior mesenteric artery , renal arteries, inferior mesenteric artery, and celiac axis are patent. The iliac vessels demonstr ate neural thrombus and calcific plaque, but no flow-limiting stenosis CTA Lower extremities: Right: The common femoral is a very tiny caliber vessel. The The popliteal artery is small caliber, a nd excluded. Reconstitution occurs also within the popliteal fossa. Anterior and posterior tibial art eries as well as the peroneal artery are patent, but small caliber. Anterior and posterior tibial art eries cross the ankle. Left: The common femoral and a small caliber vessel the popliteal artery is patent. Anterior and post erior tibial arteries as well as the peroneal artery are patent. The anterior tibial artery does not cross the ankle. The posterior tibial artery crosses the ankle. LOWER CHEST: No evidence of focal consolidation, pneumothorax or pleural effusion. LIVER: Unremarkable GALLBLADDER AND BILE DUCTS: Unremarkable. PANCREAS: Unremarkable. SPLEEN: Unremarkable. ADRENAL GLANDS: Unremarkable. KIDNEYS AND URETERS: No evidence of hydronephrosis or renal calculus. The ureters are unremarkable. PELVIS BLADDER: Unremarkable REPRODUCTIVE: Unremarkable. ABDOMEN & PELVIS STOMACH AND BOWEL: Stomach and duodenum are unremarkable No evidence of bowel obstruction. PERITONEUM: No evidence of pneumoperitoneum or free fluid. VASCULATURE: No evidence of aortic aneurysm. MUSCULOSKELETAL: No acute osseous abnormalities LYMPH NODES: No gross evidence for lymphadenopathy. SOFT TISSUE/ABDOMINAL WALL: Unremarkable IMPRESSION 1. Occlusion of the distal left femoral artery with reconstitution at the popliteal level. 2. Three-vessel right calf runoff becomes Two-vessel runoff to the right calf. Anterior posterior ti bial arteries cross the ankle. 3. Atherosclerotic disease involving abdominal aorta and lower extremity vasculature. 4. At least two vessels are seen crossing the right ankle joint. 5. Only one vessel is seen crossing the left ankle
--- NOTE | 2023-06-14 15:47 | P.PN ---
Subjective Progress Note Date: 06/14/23 (delayed charting seen at 1140) Patient is a 67-year-old male with hypertension, dyslipidemia, coronary artery disease status post stenting, and GERD who has not seen a PCP in several years prior to last week who presented to the hospital at the direction of his outpatient physician due to to low blood counts. On arrival to the ER here his vitals were within normal limits. Laboratory analysis included CBC, coagulation studies, CMP, and troponin which were remarkable for hemoglobin 6.1, hematocrit 17.3, platelet count of 142, INR 1.2, sodium 132, potassium 3.4, and bilirubin of 1.5. Fecal occult blood testing was negative. Patient underwent CT abdomen and pelvis which was unremarkable for nondilated fluid-filled bowel loops measuring up to 2.4 cm possible enhancing wall indicating enteritis. Chest x- ray demonstrated no acute process. EKG demonstrated sinus rhythm at a rate of [address]-T wave changes. Patient was ordered 1 unit of packed red blood cells. He was given 1 dose of Dilaudid. Arrangements were made for admission. Vascular surgery was consulted due to chronic leg pain. General surgery was consulted for possible EGD and colonoscopy. Hematology and oncology were consulted due to possible hemolytic anemia. In the next morning repeat labs again showed a hemoglobin of 6.9 and 1 additional unit of packed red blood cells were ordered. Patient seen and examined at bedside. He denies any GI bleeding symptoms such as nausea, vomiting, or bright red blood per rectum. He continues to have leg pain he states the Neurontin has not helped with the Dilaudid helps as the [place] helps as needed. He denies any chest pain, shortness of breath, or alcohol withdrawal symptoms. Vital signs reviewed General: Nontoxic, no distress, appears at stated age Cardiovascular: S1S2 reg, no murmur Lungs: CTA bilateral, no rhonchi, no rales, no accessory muscle use Abdominal: Soft, nontender to palpation, no guarding Ext: No gross muscle atrophy, no edema b/l lower extremities, no contractures Neuro: CN II-XI grossly intact, no focal neuro deficits Psych: Alert, oriented, appropriate affect Assessment/Plan: Symptomatic anemia, hypoproliferative with reticulocyte index of 0.12 Thrombocytopenia Coagulopathy GERD Suspect alcoholic gastritis based on CT scan Claudication suspect severe peripheral arterial disease Intractable pain when standing -Protonix 40 mg IV push twice daily -Await oncology recommendations -Case discussed with vascular surgery: Will proceed with ABIs and then further treatment once source of bleeding identified -General surgery note reviewed: EGD and colonoscopy tomorrow -B12 and iron studies normal -Nuclear site index 0.12 -Haptoglobin low and LDH high consistent with possible hemolytic anemia. GABBY ordered. -1 additional unit of packed red blood cells for a total of 2 -Repeat CBC in a.m. -Status post 1 unit of packed red blood cells. Recheck CBC now and in a.m. - Neurontin 300 mg oral 3 times daily, [place] 5/325 every 4 hours as needed for moderate pain, and Dilaudid 0.5 mg every 3 hours as needed for severe pain Nicotine dependency -Nicotine patch 14 mcg daily, nicotine gum 2 mg every 2 hours as needed for nicotine cravings Alcohol dependency - oral CIWA protocol with Ativan dosing per CIWA scale, thiamine 100 mg daily, folic acid 1 mg daily History of, but not currently taking medications for: Hypertension Dyslipidemia Coronary artery disease status post stenting Imaging: None new Data Review: Labs reviewed from today include CBC, coags, CMP, iron studies, LDH, B12, TSH which are remarkable for hemoglobin 6.9, hematocrit 20.7, platelets 138, INR 1.3, sodium 133, bilirubin 1.7, LDH 1754, and haptoglobin less than 10 DVT prophylaxis: Heparin Anticipated discharge date: Pending clinical course Anticipated discharge place: Pending clinical course This dictation was prepared using [employer] voice recognition software. Though every attempt is made to correct errors during dictation some may still exist. Objective - Vital Signs Vital signs: Vital Signs Temp 97.4 F L 06/14/23 15:35 Pulse 78 06/14/23 15:35 Resp 20 06/14/23 15:35 BP 102/63 06/14/23 15:35 Pulse Ox 100 06/14/23 15:35 FiO2 Intake & Output 06/13/23 06/14/23 06/14/23 18:59 06:59 18:59 Intake Total 276 0 Output Total 200 Balance 276 -200 Weight 81.647 kg Intake: Blood Product 276 0 Rc As-1 Unit 0 [id number] Rc Pheresis 2 As3 Unit 276 [id number] Output: Urine 200 Other: # Voids 1 - Labs CBC & Chem 7: 06/14/23 09:18 06/14/23 09:18 Labs: Abnormal Lab Results - Last 24 Hours (Table) 06/13/23 06/13/23 06/13/23 Range/Units 08:48 20:03 20:03 RBC 1.88 L (4.30-5.90) m/uL Hgb 7.5 L (13.0-17.5) gm/dL Hct 22.6 L (39.0-53.0) % MCV 120.3 H D (80.0-100.0) fL MCH 40.1 H (25.0-35.0) pg RDW 28.1 H (11.5-15.5) % Plt Count 138 L (150-450) k/uL Macrocytosis Marked A Haptoglobin (31.2-198.0) mg/dL PT (10.0-12.5) sec INR (<1.2) Sodium (137-145) mmol/L BUN (9-20) mg/dL Creatinine (0.66-1.25) mg/dL Calcium (8.4-10.2) mg/dL Iron 224 H (65-175) UG/DL % Saturation 83.27 H (15.00-50.00) Transferrin 192.0 L (204.0-354.0) mg/dL Total Bilirubin (0.2-1.3) mg/dL Lactate Dehydrogenase 1754 H (120-246) U/L Total Protein (6.3-8.2) g/dL Albumin (3.5-5.0) g/dL Crossmatch See Detail 06/13/23 06/14/23 06/14/23 Range/Units 20:03 09:18 09:18 RBC 1.69 L (4.30-5.90) m/uL Hgb 6.9 L* (13.0-17.5) gm/dL Hct 20.7 L (39.0-53.0) % MCV 122.1 H (80.0-100.0) fL MCH 40.6 H (25.0-35.0) pg RDW 27.3 H (11.5-15.5) % Plt Count 138 L (150-450) k/uL Macrocytosis Marked A Haptoglobin <10.0 L (31.2-198.0) mg/dL PT (10.0-12.5) sec INR (<1.2) Sodium 133 L (137-145) mmol/L BUN 6 L (9-20) mg/dL Creatinine 0.53 L (0.66-1.25) mg/dL Calcium 8.3 L (8.4-10.2) mg/dL Iron (65-175) UG/DL % Saturation (15.00-50.00) Transferrin (204.0-354.0) mg/dL Total Bilirubin 1.7 H (0.2-1.3) mg/dL Lactate Dehydrogenase (120-246) U/L Total Protein 5.3 L (6.3-8.2) g/dL Albumin 3.0 L (3.5-5.0) g/dL Crossmatch 06/14/23 Range/Units 09:18 RBC (4.30-5.90) m/uL Hgb (13.0-17.5) gm/dL Hct (39.0-53.0) % MCV (80.0-100.0) fL MCH (25.0-35.0) pg RDW (11.5-15.5) % Plt Count (150-450) k/uL Macrocytosis Haptoglobin (31.2-198.0) mg/dL PT 13.8 H (10.0-12.5) sec INR 1.3 H (<1.2) Sodium (137-145) mmol/L BUN (9-20) mg/dL Creatinine (0.66-1.25) mg/dL Calcium (8.4-10.2) mg/dL Iron (65-175) UG/DL % Saturation (15.00-50.00) Transferrin (204.0-354.0) mg/dL Total Bilirubin (0.2-1.3) mg/dL Lactate Dehydrogenase (120-246) U/L Total Protein (6.3-8.2) g/dL Albumin (3.5-5.0) g/dL Crossmatch
[2023-06-14] MEDS ORDERED: LORazepam 1 MG/0.5 ML VIAL IV PRN (18:37)
--- NOTE | 2023-06-14 20:34 | P.CONS ---
History of Present Illness - Reason for Consult Consult date: 06/14/23 anemia Requesting physician: Franki Mcdonald - Chief Complaint abnormal CBC - History of Present Illness Patient is a 67 year old male with a significant history of GERD/Reflux, Hyperlipidemia, Hypertension, Myocardial Infarction, ETOH abuse and nicotine dependence (25 pack year smoker). Consult was placed for anemia. Patient presented to the emergency room for low hemoglobin that was noted on CBC that was performed by his PCP. Patient states he has been having mild epigastric discomfort as well as intermittent positional dizziness over the last couple weeks. Denies nausea vomiting diarrhea. Denies blood in stool and melena. States he has no known history of previous anemia or blood transfusions. No labs in EMR to trend. Last colonoscopy was approximately 6 years ago which was normal per patient. Patient does drink alcohol, and states he drinks approximat shahla 1 pint of liquor every other day. On admission hemoglobin was noted at 6.1, MCV 129.5, WBC 4.2, platelets 142,000. 1 unit PRBCs ordered. S/p unit of blood, repeat hemoglobin 7.5, hemoglobin today 6.9, additional unit PRBCs ordered. Iron studies show iron saturation 83.2%, ferritin 291. Had spoken to to lab and asked if iron studies, haptoglobin and LDH could be ran on pretransfusion blood however it does not appear this was done. LDH 1754, haptoglobin less than 10. Reticulocyte 0.7. Bili Jeferson 1.7. Vitamin B12 275, folate pending. On admission chest x-ray was negative for acute cardiopulmonary processes. CT abdomen pelvis with contrast showed no definite CT evidence of acute processes. Nondilated, scattered, fluid-filled loops of bowel measuring up to 2.4 cm with questionable enhancing wall which may indicate a mild enteritis. General surgery has been consulted and plans for EGD and colonoscopy tomorrow. Review of Systems 10 point ROS is negative except as stated in the HPI Past Medical History Past Medical History: GERD/Reflux, Hyperlipidemia, Hypertension, Myocardial Infarction ([place]) Additional Past Medical History / Comment(s): ARTHRITIS Last Myocardial Infarction Date:: 2011 History of Any Multi-Drug Resistant Organisms: None Reported Past Surgical History: Heart Catheterization With Stent Additional Past Surgical History / Comment(s): HEART STENTS X2 Additional Past Anesthesia/Blood Transfusion Reaction / Comm: NEVER HAS HAD GENERAL ANESTHESIA Date of Last Stent Placement:: 2011 Smoking Status: Current every day smoker Past Alcohol Use History: Daily Past Drug Use History: None Reported - Past Family History Father Family Medical History: Cancer Additional Family Medical History / Comment(s): COLON Medications and Allergies Home Medications Medication Instructions Recorded Confirmed Type No Known Home Medications 06/13/23 06/13/23 History Allergies Allergy/AdvReac Type Severity Reaction Status Date / Time No Known Allergies Allergy Verified 06/13/23 10:32 Physical Exam Vitals: Vital Signs Temp Pulse Resp BP Pulse Ox 06/14/23 13:29 97.4 F L 84 20 104/60 99 06/14/23 13:26 97.6 F 83 22 122/56 97 06/14/23 12:23 74 16 112/52 96 06/14/23 07:00 97.4 F L 70 20 109/60 99 06/14/23 06:00 71 16 128/72 95 06/14/23 05:00 75 18 97 06/14/23 04:00 70 20 124/71 96 06/14/23 03:00 74 20 129/67 94 L 06/14/23 02:00 90 20 122/63 97 06/14/23 01:00 79 20 136/60 98 06/14/23 00:00 71 16 123/58 96 06/13/23 23:00 84 20 129/67 98 06/13/23 21:50 79 16 112/51 99 06/13/23 19:00 75 16 123/53 100 06/13/23 16:00 98.1 F 68 11 L 134/60 99 06/13/23 15:07 73 14 119/51 98 06/13/23 15:00 73 7 L 119/51 98 06/13/23 14:00 72 16 126/58 97 Intake and Output 06/13/23 06/14/23 06/14/23 22:59 06:59 14:59 Intake Total 276 0 Balance 276 0 Intake: Blood Product 276 0 Rc As-1 Unit 0 [id number] Rc Pheresis 2 As3 Unit 276 [id number] - Constitutional General appearance: average body habitus, no acute distress - EENT Eyes: anicteric sclerae, EOMI ENT: hearing grossly normal - Respiratory Respiratory: bilateral: CTA - Cardiovascular Rhythm: regular Heart sounds: normal: S1, S2 - Gastrointestinal General gastrointestinal: soft, no tenderness - Integumentary Integumentary: no cyanotic, pale - Musculoskeletal Musculoskeletal: strength equal bilaterally - Psychiatric Psychiatric: A&O x's 3 Results CBC & Chem 7: 06/14/23 09:18 06/14/23 09:18 Labs: Abnormal Lab Results - Last 24 Hours (Table) 06/13/23 06/13/23 06/13/23 Range/Units 08:48 20:03 20:03 RBC 1.88 L (4.30-5.90) m/uL Hgb 7.5 L (13.0-17.5) gm/dL Hct 22.6 L (39.0-53.0) % MCV 120.3 H D (80.0-100.0) fL MCH 40.1 H (25.0-35.0) pg RDW 28.1 H (11.5-15.5) % Plt Count 138 L (150-450) k/uL Macrocytosis Marked A Haptoglobin (31.2-198.0) mg/dL PT (10.0-12.5) sec INR (<1.2) Sodium (137-145) mmol/L BUN (9-20) mg/dL Creatinine (0.66-1.25) mg/dL Calcium (8.4-10.2) mg/dL Iron 224 H (65-175) UG/DL % Saturation 83.27 H (15.00-50.00) Transferrin 192.0 L (204.0-354.0) mg/dL Total Bilirubin (0.2-1.3) mg/dL Lactate Dehydrogenase 1754 H (120-246) U/L Total Protein (6.3-8.2) g/dL Albumin (3.5-5.0) g/dL Crossmatch See Detail 06/13/23 06/14/23 06/14/23 Range/Units 20:03 09:18 09:18 RBC 1.69 L (4.30-5.90) m/uL Hgb 6.9 L* (13.0-17.5) gm/dL Hct 20.7 L (39.0-53.0) % MCV 122.1 H (80.0-100.0) fL MCH 40.6 H (25.0-35.0) pg RDW 27.3 H (11.5-15.5) % Plt Count 138 L (150-450) k/uL Macrocytosis Marked A Haptoglobin <10.0 L (31.2-198.0) mg/dL PT (10.0-12.5) sec INR (<1.2) Sodium 133 L (137-145) mmol/L BUN 6 L (9-20) mg/dL Creatinine 0.53 L (0.66-1.25) mg/dL Calcium 8.3 L (8.4-10.2) mg/dL Iron (65-175) UG/DL % Saturation (15.00-50.00) Transferrin (204.0-354.0) mg/dL Total Bilirubin 1.7 H (0.2-1.3) mg/dL Lactate Dehydrogenase (120-246) U/L Total Protein 5.3 L (6.3-8.2) g/dL Albumin 3.0 L (3.5-5.0) g/dL Crossmatch 06/14/23 Range/Units 09:18 RBC (4.30-5.90) m/uL Hgb (13.0-17.5) gm/dL Hct (39.0-53.0) % MCV (80.0-100.0) fL MCH (25.0-35.0) pg RDW (11.5-15.5) % Plt Count (150-450) k/uL Macrocytosis Haptoglobin (31.2-198.0) mg/dL PT 13.8 H (10.0-12.5) sec INR 1.3 H (<1.2) Sodium (137-145) mmol/L BUN (9-20) mg/dL Creatinine (0.66-1.25) mg/dL Calcium (8.4-10.2) mg/dL Iron (65-175) UG/DL % Saturation (15.00-50.00) Transferrin (204.0-354.0) mg/dL Total Bilirubin (0.2-1.3) mg/dL Lactate Dehydrogenase (120-246) U/L Total Protein (6.3-8.2) g/dL Albumin (3.5-5.0) g/dL Crossmatch Chest x-ray: report reviewed CT scan - abdomen: report reviewed CT scan - pelvis: report reviewed Assessment and Plan (1) Anemia Current Visit: Yes Status: Acute Priority: High Code(s): D64.9 - ANEMIA, UNSPECIFIED SNOMED Code(s): 161376169 Plan: Macrocytic anemia: Presented for abnormal labs, with low hemoglobin that was noted on CBC that was performed by his PCP. Patient states he has been having mild epigastric discomfort as well as intermittent positional dizziness over the last couple weeks. Denies nausea vomiting diarrhea. Denies blood in stool and melena. States he has no known history of previous anemia or blood transfusions. No labs in EMR to trend. Last colonoscopy was approximately 6 years ago which was normal per patient. Patient does report frequent alcohol use, states he drinks approximately 1 pint of liquor every other day. - On admission hemoglobin was noted at 6.1, MCV 129.5, WBC 4.2, platelets 142,000. 1 unit PRBCs ordered. S/p unit of blood, repeat hemoglobin 7.5, hem oglobin today 6.9, additional unit PRBCs ordered. No previous labs in EMR to trend -Iron studies obtained, iron saturation 83.2%, ferritin 291. Had spoken to to lab and asked if iron studies, haptoglobin and LDH could be ran on pretransfusion blood however it does not appear this was done. LDH 1754, haptoglobin less than 10. Reticulocyte 0.7. Bilirubin 1.7. Vitamin B12 275, folate pending. Do not believe this is hemolysis, as pt had an appropriate response to blood transfusion, and this would typically not be seen with hemolytic anemia, however difficult to interpret anemia and hemolysis labs s/p blood transfusion, as this can affect studies. Anemia appears to be more likely to be r/t to GI bleed -MMA ordered, as Vit B12 on low end of normal. Will also obtain paraproteinemia labs to r/o other etiologies -CT abdomen pelvis with contrast showed no definite CT evidence of acute proce sses. Nondilated, scattered, fluid-filled loops of bowel measuring up to 2.4 cm with questionable enhancing wall which may indicate a mild enteritis -General surgery has been consulted and plans for EGD and colonoscopy tomorrow -Continue to monitor CBC. Please transfuse for hgb < 7 or if symptomatic
[2023-06-15 03:54] LABS: Immunoglobulin M <35.0 mg/dL (40.0-280.0)
[2023-06-15 03:55] LABS: Protein, Total 5.2 g/dL (6.2-8.2)
[2023-06-15 06:41] LABS: Anisocytosis Marked; Basophils % (A) 0 %; Eosinophils # (A) 0.2 k/uL (0-0.7); Eosinophils % (A) 5 %; HGB 7.1 gm/dL (13.0-17.5); Lymphocytes # (A) 1.5 k/uL (1.0-4.8); Lymphocytes % (A) 37 %; MCH 40.6 pg (25.0-35.0); MCHC 35.5 g/dL (31.0-37.0); Macrocytosis Marked; Mean Platelet Volume 9.9; Monocytes # (A) 0.1 k/uL (0-1.0); Monocytes % (A) 3 %; Neutrophils # (A) 2.1 k/uL (1.3-7.7); Neutrophils % (A) 53 %; Platelet Count 111 k/uL (150-450); Poikilocytosis Slight; RBC 1.75 m/uL (4.30-5.90)
[2023-06-15 06:44] LABS: RDW 27.8 % (11.5-15.5)
[2023-06-15 06:45] LABS: MCV 114.3 fL (80.0-100.0)
[2023-06-15 07:30] LABS: ALT 15 U/L (4-49); AST 38 U/L (17-59); African American GFR (CKD) >90 (>60 ml/min/1.73 sqM); Albumin 2.5 g/dL (3.5-5.0); Albumin/Globulin Ratio 1.1; Alkaline Phosphatase 61 U/L (38-126); Anion Gap 3 mmol/L; Blood Urea Nitrogen 3 mg/dL (9-20); Calcium 8.1 mg/dL (8.4-10.2); Carbon Dioxide 25 mmol/L (22-30); Chloride 106 mmol/L (98-107); Globulin 2.2 g/dL; Glucose 86 mg/dL (74-99); Non-African American GFR(CKD) >90 (>60 ml/min/1.73 sqM); Potassium 3.3 mmol/L (3.5-5.1); Sodium 134 mmol/L (137-145); Total Bilirubin 1.9 mg/dL (0.2-1.3); Total Protein 4.7 g/dL (6.3-8.2)
[2023-06-15] MEDS: POTASSIUM CHLORIDE ER 20 MEQ TAB.ER PO STA (09:16)
[2023-06-15] MEDS: GABAPENTIN 300 MG CAP PO SCH (09:16)
--- NOTE | 2023-06-15 11:21 | P.PN ---
Subjective Progress Note Date: 06/15/23 Principal diagnosis: Peripheral arterial disease, claudication Patient is seen and examined today as a follow-up. He is scheduled for upper and lower endoscopy today with general surgery. he has received 2 units of blood this admission with a repeat hemoglobin today of 7.1. Continues to deny any signs of GI bleed. He does state he is having quite a bit of pain in his legs and his feet. He underwent a CT angiogram yesterday with runoff that reported occlusion of the distal left femoral artery with reconstitution at the popliteal level. Three-vessel right calf runoff becomes two-vessel runoff to the right calf. Anterior posterior tibial arteries across the ankle. A rthrosclerotic disease involving abdominal aorta and lower extremity vasculature. At least 2 vessels are seen crossing the right ankle joint. Only 1 vessels seen crossing the left ankle. Objective - Vital Signs Vital signs: Vital Signs Temp 97.8 F 06/15/23 07:42 Pulse 66 06/15/23 07:42 Resp 17 06/15/23 07:42 BP 111/41 06/15/23 07:42 Pulse Ox 95 06/15/23 07:42 FiO2 Intake & Output 06/14/23 06/15/23 06/15/23 18:59 06:59 18:59 Intake Total 310 Output Total 200 150 Balance 110 -150 Weight 81.647 kg 76.5 kg Intake: Blood Product 310 Rc As-1 Unit 310 [id number] Output: Urine 200 150 Other: Voiding Method Bedside Commode Bedside Commode # Voids 1 1 # Bowel Movements 1 1 - Exam General appearance: The patient is alert, oriented, appears in no acute distress. Pale. HET: Head is normocephalic and atraumatic. Pupils are equal and reactive. Neck: Supple. Heart: Regular. Lungs: Equal expansion, normal respiratory effort. Abdomen: Soft, nontender, nondistended. Extremities: Normal skin color and turgor. Bilateral feet cool to the touch. No wounds noted to lower extremities. Palpable bilateral femoral pulses, nonpalpable popliteal, PT and DP pulses. +2 radial pulses. Neurological: No focal deficits. Alert and oriented x 3. - Labs CBC & Chem 7: 06/15/23 05:49 06/15/23 05:49 Labs: Abnormal Lab Results - Last 24 Hours (Table) 06/13/23 06/14/2324 Range/Units 08:48 09:18 09:18 RBC 1.69 L (4.30-5.90) m/uL Hgb 6.9 L* (13.0-17.5) gm/dL Hct 20.7 L (39.0-53.0) % MCV 122.1 H (80.0-100.0) fL MCH 40.6 H (25.0-35.0) pg RDW 27.3 H (11.5-15.5) % Plt Count 138 L (150-450) k/uL Macrocytosis Marked A PT (10.0-12.5) sec INR (<1.2) Sodium 133 L (137-145) mmol/L Potassium (3.5-5.1) mmol/L BUN 6 L (9-20) mg/dL Creatinine 0.53 L (0.66-1.25) mg/dL Calcium 8.3 L (8.4-10.2) mg/dL Total Bilirubin 1.7 H (0.2-1.3) mg/dL Total Protein 5.3 L (6.3-8.2) g/dL Total Protein (PEP) (6.2-8.2) g/dL Albumin 3.0 L (3.5-5.0) g/dL IgM (40.0-280.0) mg/dL Crossmatch See Detail 06/14/23 06/14/23 06/15/23 Range/Units 09:18 21:36 05:49 RBC 1.75 L (4.30-5.90) m/uL Hgb 7.1 L (13.0-17.5) gm/dL Hct 20.0 L (39.0-53.0) % MCV 114.3 H D (80.0-100.0) fL MCH 40.6 H (25.0-35.0) pg RDW 27.8 H (11.5-15.5) % Plt Count 111 L (150-450) k/uL Macrocytosis Marked A PT 13.8 H (10.0-12.5) sec INR 1.3 H (<1.2) Sodium (137-145) mmol/L Potassium (3.5-5.1) mmol/L BUN (9-20) mg/dL Creatinine (0.66-1.25) mg/dL Calcium (8.4-10.2) mg/dL Total Bilirubin (0.2-1.3) mg/dL Total Protein (6.3-8.2) g/dL Total Protein (PEP) 5.2 L (6.2-8.2) g/dL Albumin (3.5-5.0) g/dL IgM <35.0 L (40.0-280.0) mg/dL Crossmatch 06/15/23 Range/Units 05:49 RBC (4.30-5.90) m/uL Hgb (13.0-17.5) gm/dL Hct (39.0-53.0) % MCV (80.0-100.0) fL MCH (25.0-35.0) pg RDW (11.5-15.5) % Plt Count (150-450) k/uL Macrocytosis PT (10.0-12.5) sec INR (<1.2) Sodium 134 L (137-145) mmol/L Potassium 3.3 L (3.5-5.1) mmol/L BUN 3 L (9-20) mg/dL Creatinine 0.48 L (0.66-1.25) mg/dL Calcium 8.1 L (8.4-10.2) mg/dL Total Bilirubin 1.9 H (0.2-1.3) mg/dL Total Protein 4.7 L (6.3-8.2) g/dL Total Protein (PEP) (6.2-8.2) g/dL Albumin 2.5 L (3.5-5.0) g/dL IgM (40.0-280.0) mg/dL Crossmatch Assessment and Plan Assessment: 1. Symptomatic anemia 2. Chronic bilateral lower extremity pain, claudication 3. Peripheral arterial disease, chronic 4. History of hypertension 5. History of hyperlipidemia 6. History of coronary artery disease status post cardiac stents 7. Nicotine dependence 8. Alcohol abuse/dependence Plan: 1. Continue symptomatic and supportive treatment 2. Pain medication as needed 3. Lower extremity arterial ultrasound ordered and reviewed 4. Patient is scheduled for EGD and colonoscopy today with general surgery 5. Monitor for alcohol withdrawal, CIWA protocol 6. Recommend alcohol abstinence 7. Recommend smoking cessation. Patient currently on nicotine patch and gum 8. CT angiogram abdomen pelvis and aorta with runoff reviewed by Dr. Bailey 9. Recommend outpatient follow-up with vascular surgery, based on CTA findings patient will require vascular surgical intervention once blood counts are improved 10. Rest of medical management per primary medical team Thank you for this consultation, we will continue to follow. The impression and plan of care has been dictated as directed. Dr. Bailey I performed a history and examination of this patient, discussed the same with the dictator. I agree with the dictator's note ,documented as a scribe. Any additional findings or plans will be noted.
[2023-06-15 12:32] LABS: Anisocytosis Marked; HCT 20.6 % (39.0-53.0); MCHC 33.6 g/dL (31.0-37.0); MCV 115.8 fL (80.0-100.0); Macrocytosis Marked; Mean Platelet Volume 10.1; Platelet Count 107 k/uL (150-450); Poikilocytosis Slight; RBC 1.78 m/uL (4.30-5.90); WBC 3.2 k/uL (3.8-10.6)
[2023-06-15 12:47] LABS: HGB 6.9 gm/dL (13.0-17.5); RDW 27.7 % (11.5-15.5)
[2023-06-15 14:02] LABS: Free Kappa Lt Chain Qnt, Serum 3.49 mg/dL (0.33-1.94); Free Lambda Lt Chain Qnt, Seru 3.02 mg/dL (0.57-2.63)
[2023-06-15] MEDS ORDERED: PROPOFOL 10 MG/ML 20 ML VIAL IV ONE (14:50)
[2023-06-15] MEDS ORDERED: PHENYLEPHRINE-0.9% NACL SYG 1,000 MCG/10 ML SYRINGE ONE (14:50)
[2023-06-15] MEDS: SODIUM CHLORIDE 0.9% 500 ML 500 ML IV ONE (14:51)
--- NOTE | 2023-06-15 15:28 | P.PCN ---
Date of Procedure: 06/15/23 Procedure(s) Performed: PREOPERATIVE DIAGNOSIS: Anemia, screening POSTOPERATIVE DIAGNOSIS: Mild gastritis, small hiatal hernia, mild distal esophagitis, small rectal polyp, mild diverticulosis PROCEDURE: 1. EGD with biopsy 2. Colonoscopy with snare polypectomy ANESTHESIA: [facility] [place] SURGEON: Reji Wells M.D. SPECIMENS: Antrum, distal esophagus, rectal polyp ENDOSCOPIC PROCEDURE: The patient was on the endoscopy table in the left decubitus position. The Olympus gastroscope was inserted into the oropharynx and passed under direct visualization to the region of the third portion of the duodenum. From that point the scope was slowly withdrawn inspecting all surfaces carefully. There were no neoplastic inflammatory or polypoid lesions throughout the duodenum. The pylorus was widely patent. The stomach was carefully inspected. There was mild gastritis present. A biopsy of the antrum took place to rule out H. pylori. Retroflexion revealed a small to medium size hiatal hernia. The GE junction was present 2 to 3 cm above the diaphragmatic hiatus. The patient had mild inflammation at the GE junction that was noncircumferential and short in length. Biopsy was taken. The remainder the esophagus appeared normal. The patient was kept on the endoscopy table in the left decubitus position. The Olympus colonoscope was inserted into the anus and passed under direct visualization to the base of the cecum. The appendiceal orifice was visualized. From that point the scope was slowly withdrawn inspecting all surfaces carefully. There were no neoplastic inflammatory or polypoid lesions throughout the cecum, ascending, transverse, descending, and sigmoid colon. In the rectum a small polyp was seen and removed using the snare with cautery technique. The remainder of the rectum was normal. The patient had mild diverticulosis. Digital rectal examination was normal. The patient was taken to the recovery room in stable condition per anesthesia guidelines. RECOMMENDATIONS: There was no blood or melanotic stool seen throughout today's examination. Sites of bleeding or anemia not obvious on this test. Could have been related to chronic gastritis with the patient's overall poor nutritional state. Continue antiacid therapy postdischarge. Monitor hemoglobin. No further surgical intervention planned. Will sign off. May resume regular diet. Please call if needed.
--- NOTE | 2023-06-15 16:40 | P.PN ---
Subjective Progress Note Date: 06/15/23 (delayed charting seen at 0945) Patient is a 67-year-old male with hypertension, dyslipidemia, coronary artery disease status post stenting, and GERD who has not seen a PCP in several years prior to last week who presented to the hospital at the direction of his outpatient physician due to to low blood counts. On arrival to the ER here his vitals were within normal limits. Laboratory analysis included CBC, coagulation studies, CMP, and troponin which were remarkable for hemoglobin 6.1, hematocrit 17.3, platelet count of 142, INR 1.2, sodium 132, potassium 3.4, and bilirubin of 1.5. Fecal occult blood testing was negative. Patient underwent CT abdomen and pelvis which was unremarkable for nondilated fluid-filled bowel loops measuring up to 2.4 cm possible enhancing wall indicating enteritis. Chest x- ray demonstrated no acute process. EKG demonstrated sinus rhythm at a rate of [address]-T wave changes. Patient was ordered 1 unit of packed red blood cells. He was given 1 dose of Dilaudid. Arrangements were made for admission. Vascular surgery was consulted due to chronic leg pain. General surgery was consulted for possible EGD and colonoscopy. Hematology and oncology were consulted due to possible hemolytic anemia. In the next morning repeat labs again showed a hemoglobin of 6.9 and 1 additional unit of packed red blood cells were ordered. Blood counts are again low on the morning of 06/15/2023 and he needed 1 additional unit of packed red blood cells. Patient underwent EGD and colonoscopy on 06/15/2023 which showed small rectal polyp as well as some gastritis but no overt signs of bleeding. Patient seen and examined at bedside. He is continuing to have leg pain. He denies any chest pain or shortness of breath. He is extremely tired this morn ing as he has been up all night prepping for his colonoscopy. He denies any overt abdominal pain no nausea or vomiting. Vital signs reviewed General: Nontoxic, no distress, appears at stated age Cardiovascular: S1S2 reg, no murmur Lungs: CTA bilateral, no rhonchi, no rales, no accessory muscle use Abdominal: Soft, nontender to palpation, no guarding Ext: No gross muscle atrophy, no edema b/l lower extremities, no contractures Neuro: CN II-XI grossly intact, no focal neuro deficits Psych: Alert, oriented, appropriate affect Assessment/Plan: Symptomatic anemia, hypoproliferative with reticulocyte index of 0.12 Thrombocytopenia Coagulopathy GERD Alcoholic gastritis -Case discussed with Dr. Daniel. Does not feel patient has hemolytic anemia. -Colonoscopy and EGD note reviewed. No sites of bleeding or anemia obvious on testing but could be related to chronic gastritis and poor nutritional state. Continue with PPI. General surgery will sign off -Protonix 40 mg IV push twice daily -B12 low normal, and iron studies normal -Retic index 0.12 -GABBY negative -1 additional unit of packed red blood cells for a total of 3 -Repeat CBC in a.m. Claudication, Chronic severe peripheral arterial disease Intractable pain when standing - Neurontin 300 mg oral 3 times daily ( Correction started on 06/15/2023), [place] 5/325 every 4 hours as needed for moderate pain, and Dilaudid 0.5 mg every 3 hours as needed for severe pain -Vascular surgery note reviewed: Outpatient follow-up based on CTA findings likely will require vascular intervention once blood counts are improved. Nicotine dependency -Nicotine patch 14 mcg daily, nicotine gum 2 mg every 2 hours as needed for vinod aisha cravings Alcohol dependency - oral CIWA protocol with Ativan dosing per CIWA scale, thiamine 100 mg daily, folic acid 1 mg daily History of, but not currently taking medications for: Hypertension Dyslipidemia Coronary artery disease status post stenting Imaging: None new Data Review: Labs reviewed from today include CBC which is remarkable for hemoglobin of 7.1 and platelets of 111. CMP is remarkable for sodium of 134, potassium 3.3, bilirubin 1.9. DVT prophylaxis: Heparin Anticipated discharge date: Pending clinical course Anticipated discharge place: Pending clinical course This dictation was prepared using [employer] voice recognition software. Though every attempt is made to correct errors during dictation some may still exist. Objective - Vital Signs Vital signs: Vital Signs Temp 98.5 F 06/15/23 16:19 Pulse 82 06/15/23 16:21 Resp 18 06/15/23 16:21 BP 118/64 06/15/23 16:21 Pulse Ox 100 06/15/23 16:21 FiO2 Intake & Output 06/14/23 06/15/23 06/15/23 18:59 06:59 18:59 Intake Total 310 200 Output Total 200 150 Balance 110 -150 200 Weight 81.647 kg 76.5 kg Intake: IV 200 Blood Product 310 0 Unit 0 Rc As-1 Unit 310 [id number] Output: Urine 200 150 Other: Voiding Method Bedside Commode Bedside Commode Bedside Commode # Voids 1 1 1 # Bowel Movements 1 1 - Labs CBC & Chem 7: 06/15/23 11:56 06/15/23 05:49 Labs: Abnormal Lab Results - Last 24 Hours (Table) 06/13/23 06/14/23 06/15/23 Range/Units 08:48 21:36 05:49 WBC (3.8-10.6) k/uL RBC 1.75 L (4.30-5.90) m/uL Hgb 7.1 L (13.0-17.5) gm/dL Hct 20.0 L (39.0-53.0) % MCV 114.3 H D (80.0-100.0) fL MCH 40.6 H (25.0-35.0) pg RDW 27.8 H (11.5-15.5) % Plt Count 111 L (150-450) k/uL Macrocytosis Marked A Sodium (137-145) mmol/L Potassium (3.5-5.1) mmol/L BUN (9-20) mg/dL Creatinine (0.66-1.25) mg/dL Calcium (8.4-10.2) mg/dL Total Bilirubin (0.2-1.3) mg/dL Lactate Dehydrogenase (120-246) U/L Total Protein (6.3-8.2) g/dL Total Protein (PEP) 5.2 L (6.2-8.2) g/dL Albumin (3.5-5.0) g/dL IgM <35.0 L (40.0-280.0) mg/dL Free [place] LC, Quant 3.49 H (0.33-1.94) mg/dL Free Lambda LC, Quant 3.02 H (0.57-2.63) mg/dL Crossmatch See Detail 06/15/23 06/15/23 06/15/23 Range/Units 05:49 05:49 11:56 WBC 3.2 L (3.8-10.6) k/uL RBC 1.78 L (4.30-5.90) m/uL Hgb 6.9 L* (13.0-17.5) gm/dL Hct 20.6 L (39.0-53.0) % MCV 115.8 H (80.0-100.0) fL MCH 39.0 H (25.0-35.0) pg RDW 27.7 H (11.5-15.5) % Plt Count 107 L (150-450) k/uL Macrocytosis Marked A Sodium 134 L (137-145) mmol/L Potassium 3.3 L (3.5-5.1) mmol/L BUN 3 L (9-20) mg/dL Creatinine 0.48 L (0.66-1.25) mg/dL Calcium 8.1 L (8.4-10.2) mg/dL Total Bilirubin 1.9 H (0.2-1.3) mg/dL Lactate Dehydrogenase 1625 H (120-246) U/L Total Protein 4.7 L (6.3-8.2) g/dL Total Protein (PEP) (6.2-8.2) g/dL Albumin 2.5 L (3.5-5.0) g/dL IgM (40.0-280.0) mg/dL Free [place] LC, Quant (0.33-1.94) mg/dL Free Lambda LC, Quant (0.57-2.63) mg/dL Crossmatch
[2023-06-16 07:41] LABS: Anisocytosis Marked; Basophils % (A) 0 %; Eosinophils # (A) 0.3 k/uL (0-0.7); Eosinophils % (A) 6 %; Lymphocytes # (A) 1.7 k/uL (1.0-4.8); Lymphocytes % (A) 34 %; MCH 38.1 pg (25.0-35.0); MCHC 33.7 g/dL (31.0-37.0); MCV 112.9 fL (80.0-100.0); Macrocytosis Marked; Monocytes # (A) 0.2 k/uL (0-1.0); Monocytes % (A) 5 %; Neutrophils # (A) 2.6 k/uL (1.3-7.7); Neutrophils % (A) 52 %; Platelet Count 113 k/uL (150-450)
[2023-06-16 07:47] LABS: INR 1.2 (<1.2); Prothrombin Time 12.8 sec (10.0-12.5)
[2023-06-16 07:51] LABS: RDW 26.7 % (11.5-15.5)
[2023-06-16 07:52] LABS: ALT 15 U/L (4-49); AST 27 U/L (17-59); African American GFR (CKD) >90 (>60 ml/min/1.73 sqM); Albumin 2.7 g/dL (3.5-5.0); Albumin/Globulin Ratio 1.2; Alkaline Phosphatase 73 U/L (38-126); Anion Gap 0 mmol/L; Blood Urea Nitrogen <2 mg/dL (9-20); Calcium 8.2 mg/dL (8.4-10.2); Carbon Dioxide 25 mmol/L (22-30); Chloride 108 mmol/L (98-107); Globulin 2.3 g/dL; Glucose 95 mg/dL (74-99); HGB 8.8 gm/dL (13.0-17.5); Non-African American GFR(CKD) >90 (>60 ml/min/1.73 sqM); Potassium 3.5 mmol/L (3.5-5.1); Sodium 133 mmol/L (137-145); Total Bilirubin 1.7 mg/dL (0.2-1.3)
[2023-06-16 08:06] LABS: Albumin 2.02 g/dL (3.80-4.90); Gamma Globulin 0.41 g/dL (0.70-1.50)
--- NOTE | 2023-06-16 11:16 | P.PN ---
Subjective Progress Note Date: 06/16/23 Principal diagnosis: Peripheral arterial disease, claudication Patient is seen and examined today as a follow-up. Yesterday he underwent upper and lower endoscopy. Upper endoscopy revealed mild gastritis, small hiatal hernia, and mild distal esophagitis. Colonoscopy findings included small rectal polyp and mild diverticulosis. He has received 3 units of blood this admission. Today's repeat hemoglobin 8.8, platelet count 113,000, INR 1.2. He still reports pain in his feet. He was started on gabapentin yesterday. Objective - Vital Signs Vital signs: Vital Signs Temp 97.9 F 06/16/23 07:05 Pulse 70 06/16/23 07:05 Resp 18 06/16/23 07:05 BP 136/63 06/16/23 07:05 Pulse Ox 99 06/16/23 07:05 FiO2 Intake & Output 06/15/23 06/16/23 06/16/23 18:59 06:59 18:59 Intake Total 510 1260 Output Total 850 225 Balance 510 410 -225 Weight 78.8 kg Intake: IV 200 Intake, IV Titration 900 Amount Dextrose 5%-0.45% NaCl 1, 900 000 ml @ 75 mls/hr IV . [id number] [facility] Rx#:[id number] Oral 360 Blood Product 310 Rc As-1 Unit 310 [id number] Output: Urine 850 225 Other: Voiding Method Bedside Commode Bedside Commode Urinal # Voids 2 2 # Bowel Movements 2 - Exam General appearance: The patient is alert, oriented, appears in no acute distress. HET: Head is normocephalic and atraumatic. Pupils are equal and reactive. Neck: Supple. Heart: Regular. Lungs: Equal expansion, normal respiratory effort. Abdomen: Soft, nontender, nondistended. Extremities: Normal skin color and turgor. Bilateral feet cool to the touch. No wounds noted to lower extremities. Palpable bilateral femoral pulses, nonpalpable popliteal, PT and DP pulses. +2 radial pulses. Neurological: No focal deficits. Alert and oriented x 3. - Labs CBC & Chem 7: 06/16/23 06:55 06/16/23 06:55 Labs: Abnormal Lab Results - Last 24 Hours (Table) 06/13/23 06/14/23 06/15/23 Range/Units 08:48 21:36 05:49 WBC (3.8-10.6) k/uL RBC (4.30-5.90) m/uL Hgb (13.0-17.5) gm/dL Hct (39.0-53.0) % MCV (80.0-100.0) fL MCH (25.0-35.0) pg RDW (11.5-15.5) % Plt Count (150-450) k/uL Macrocytosis PT (10.0-12.5) sec INR (<1.2) Sodium (137-145) mmol/L Chloride (98-107) mmol/L BUN (9-20) mg/dL Creatinine (0.66-1.25) mg/dL Calcium (8.4-10.2) mg/dL Total Bilirubin (0.2-1.3) mg/dL Lactate Dehydrogenase 1625 H (120-246) U/L Total Protein (6.3-8.2) g/dL Albumin (3.5-5.0) g/dL Albumin (PEP) 2.02 L (3.80-4.90) g/dL Gaebq-3-Wgpjbogss 0.29 L (0.60-1.00) g/dL Beta Globulins 0.30 L (0.60-1.30) g/dL Gamma Globulins 0.41 L (0.70-1.50) g/dL Free [place] LC, Quant 3.49 H (0.33-1.94) mg/dL Free Lambda LC, Quant 3.02 H (0.57-2.63) mg/dL Crossmatch See Detail 06/15/23 06/16/23 06/16/23 Range/Units 11:56 06:55 06:55 WBC 3.2 L (3.8-10.6) k/uL RBC 1.78 L 2.30 L (4.30-5.90) m/uL Hgb 6.9 L* 8.8 L D (13.0-17.5) gm/dL Hct 20.6 L 26.0 L (39.0-53.0) % MCV 115.8 H 112.9 H (80.0-100.0) fL MCH 39.0 H 38.1 H (25.0-35.0) pg RDW 27.7 H 26.7 H (11.5-15.5) % Plt Count 107 L 113 L (150-450) k/uL Macrocytosis Marked A Marked A PT 12.8 H (10.0-12.5) sec INR 1.2 H (<1.2) Sodium (137-145) mmol/L Chloride (98-107) mmol/L BUN (9-20) mg/dL Creatinine (0.66-1.25) mg/dL Calcium (8.4-10.2) mg/dL Total Bilirubin (0.2-1.3) mg/dL Lactate Dehydrogenase (120-246) U/L Total Protein (6.3-8.2) g/dL Albumin (3.5-5.0) g/dL Albumin (PEP) (3.80-4.90) g/dL Tqefs-2-Apujucvgi (0.60-1.00) g/dL Beta Globulins (0.60-1.30) g/dL Gamma Globulins (0.70-1.50) g/dL Free [place] LC, Quant (0.33-1.94) mg/dL Free Lambda LC, Quant (0.57-2.63) mg/dL Crossmatch 06/16/23 Range/Units 06:55 WBC (3.8-10.6) k/uL RBC (4.30-5.90) m/uL Hgb (13.0-17.5) gm/dL Hct (39.0-53.0) % MCV (80.0-100.0) fL MCH (25.0-35.0) pg RDW (11.5-15.5) % Plt Count (150-450) k/uL Macrocytosis PT (10.0-12.5) sec INR (<1.2) Sodium 133 L (137-145) mmol/L Chloride 108 H (98-107) mmol/L BUN <2 L (9-20) mg/dL Creatinine 0.59 L (0.66-1.25) mg/dL Calcium 8.2 L (8.4-10.2) mg/dL Total Bilirubin 1.7 H (0.2-1.3) mg/dL Lactate Dehydrogenase (120-246) U/L Total Protein 5.0 L (6.3-8.2) g/dL Albumin 2.7 L (3.5-5.0) g/dL Albumin (PEP) (3.80-4.90) g/dL Kaqwb-5-Eaclonssv (0.60-1.00) g/dL Beta Globulins (0.60-1.30) g/dL Gamma Globulins (0.70-1.50) g/dL Free [place] LC, Quant (0.33-1.94) mg/dL Free Lambda LC, Quant (0.57-2.63) mg/dL Crossmatch Assessment and Plan Assessment: 1. Symptomatic anemia 2. Chronic bilateral lower extremity pain, claudication 3. Peripheral arterial disease, chronic 4. History of hypertension 5. History of hyperlipidemia 6. History of coronary artery disease status post cardiac stents 7. Nicotine dependence 8. Alcohol abuse/dependence Plan: 1. Continue symptomatic and supportive treatment 2. Pain medication as needed 3. Lower extremity arterial ultrasound ordered and reviewed 4. Patient is status post EGD and colonoscopy 5. Monitor for alcohol withdrawal, CIWA protocol 6. Recommend alcohol abstinence 7. Recommend smoking cessation. Patient currently on nicotine patch and gum 8. CT angiogram abdomen pelvis and aorta with runoff reviewed by Dr. Bailey 9. Recommend outpatient follow-up with vascular surgery, based on CTA findings patient will require vascular surgical intervention once blood counts are improved 10. Rest of medical management per primary medical team Thank you for this consultation, patient is cleared from vascular surgery for discharge. The impression and plan of care has been dictated as directed. Dr. Bailey I performed a history and examination of this patient, discussed the same with the dictator. I agree with the dictator's note ,documented as a scribe. Any additional findings or plans will be noted.
[2023-06-16] MEDS: CYANOCOBALAMIN 1,000 MCG/ML 1 ML VIAL IM SCH (12:44)
[2023-06-16] MEDS: SODIUM FERRIC GLUCONAT-SUCROSE 125 MG in SODIUM CHLORIDE 0.9% 100 ML IVPB SCH (17:29)
--- NOTE | 2023-06-16 17:41 | P.PN ---
Subjective Progress Note Date: 06/16/23 (delayed charting seen at 1100) Patient is a 67-year-old male with hypertension, dyslipidemia, coronary artery disease status post stenting, and GERD who has not seen a PCP in several years prior to last week who presented to the hospital at the direction of his outpatient physician due to to low blood counts. On arrival to the ER here his vitals were within normal limits. Laboratory analysis included CBC, coagulation studies, CMP, and troponin which were remarkable for hemoglobin 6.1, hematocrit 17.3, platelet count of 142, INR 1.2, sodium 132, potassium 3.4, and bilirubin of 1.5. Fecal occult blood testing was negative. Patient underwent CT abdomen and pelvis which was unremarkable for nondilated fluid-filled bowel loops measuring up to 2.4 cm possible enhancing wall indicating enteritis. Chest x- ray demonstrated no acute process. EKG demonstrated sinus rhythm at a rate of [address]-T wave changes. Patient was ordered 1 unit of packed red blood cells. He was given 1 dose of Dilaudid. Arrangements were made for admission. Vascular surgery was consulted due to chronic leg pain. General surgery was consulted for possible EGD and colonoscopy. Hematology and oncology were consulted due to possible hemolytic anemia. In the next morning repeat labs again showed a hemoglobin of 6.9 and 1 additional unit of packed red blood cells were ordered. Blood counts are again low on the morning of 06/15/2023 and he needed 1 additional unit of packed red blood cells. Patient underwent EGD and colonoscopy on 06/15/2023 which showed small rectal polyp as well as some gastritis but no overt signs of bleeding. His hemoglobin stabilized by 06/16/23. Patient seen and examined at bedside. Continues to have lower extremity pain. He denies any lightheaded or dizziness. He denies any chest pain or shortness of breath. Again stressed with the patient the need to continue follow-up and that he will likely be discharged home tomorrow if his hemoglobin remained stabl e. Patient is unsure about follow-up. I again reiterated the importance of finding what is causing his pain and getting it treated so that he can get his life back. Vital signs reviewed General: Nontoxic, no distress, appears at stated age Cardiovascular: S1S2 reg, no murmur Lungs: CTA bilateral, no rhonchi, no rales, no accessory muscle use Abdominal: Soft, nontender to palpation, no guarding Ext: No gross muscle atrophy, no edema b/l lower extremities, no contractures Neuro: CN II-XI grossly intact, no focal neuro deficits Psych: Alert, oriented, appropriate affect Assessment/Plan: Symptomatic anemia, hypoproliferative with reticulocyte index of 0.12 Thrombocytopenia Coagulopathy GERD Alcoholic gastritis -Case discussed with Dr. Daniel. Plan will be for IV iron x 1 today. Outpatient follow-up in the office in approximately 4 weeks with repeat blood work. -Protonix 40 mg oral BID -B12 low normal, and iron studies normal -Retic index 0.12 -GABBY negative - s/p 3 units of pRBC -Repeat CBC in a.m. - B12 1000 mcg daily Claudication, Chronic severe peripheral arterial disease Intractable pain when standing - Neurontin 300 mg oral 3 times daily, [place] 5/325 every 4 hours as needed for moderate pain, and Dilaudid 0.5 mg every 3 hours as needed for severe pain -Vascular surgery note reviewed: Patient will need surgical intervention once blood counts are improved. Will need to follow-up in the office with Dr. Bailey. Nicotine dependency -Nicotine patch 14 mcg daily, nicotine gum 2 mg every 2 hours as needed for nicotine cravings Alcohol dependency - oral CIWA protocol with Ativan dosing per CIWA scale, thiamine 100 mg daily, folic acid 1 mg daily History of, but not currently taking medications for: Hypertension Dyslipidemia Coronary artery disease status post stenting Imaging: None new Data Review: Labs reviewed from today include CBC, coags, and CMP which is remarkable for hemoglobin 8.8, platelets 113, sodium 133, total bilirubin 1.7. DVT prophylaxis: Heparin Anticipated discharge date: in AM Anticipated discharge place: Home with home health This dictation was prepared using [employer] voice recognition software. Though every attempt is made to correct errors during dictation some may still exist. Objective - Vital Signs Vital signs: Vital Signs Temp 98.1 F 06/16/23 12:25 Pulse 61 06/16/23 12:25 Resp 18 06/16/23 12:25 BP 135/68 06/16/23 12:25 Pulse Ox 97 06/16/23 12:25 FiO2 Intake & Output 06/15/23 06/16/23 06/16/23 18:59 06:59 18:59 Intake Total 510 1260 Output Total 850 725 Balance 510 410 -725 Weight 78.8 kg Intake: IV 200 Intake, IV Titration 900 Amount Dextrose 5%-0.45% NaCl 1, 900 000 ml @ 75 mls/hr IV . [id number] [facility] Rx#:[id number] Oral 360 Blood Product 310 Rc As-1 Unit 310 [id number] Output: Urine 850 725 Other: Voiding Method Bedside Commode Bedside Commode Urinal Urinal # Voids 2 2 # Bowel Movements 2 - Labs CBC & Chem 7: 06/16/23 06:55 06/16/23 06:55 Labs: Abnormal Lab Results - Last 24 Hours (Table) 06/13/23 06/14/23 06/16/23 Range/Units 08:48 21:36 06:55 RBC 2.30 L (4.30-5.90) m/uL Hgb 8.8 L D (13.0-17.5) gm/dL Hct 26.0 L (39.0-53.0) % MCV 112.9 H (80.0-100.0) fL MCH 38.1 H (25.0-35.0) pg RDW 26.7 H (11.5-15.5) % Plt Count 113 L (150-450) k/uL Macrocytosis Marked A PT (10.0-12.5) sec INR (<1.2) Sodium (137-145) mmol/L Chloride (98-107) mmol/L BUN (9-20) mg/dL Creatinine (0.66-1.25) mg/dL Calcium (8.4-10.2) mg/dL Total Bilirubin (0.2-1.3) mg/dL Total Protein (6.3-8.2) g/dL Albumin (3.5-5.0) g/dL Albumin (PEP) 2.02 L (3.80-4.90) g/dL Wusvm-6-Qtgnspwmm 0.29 L (0.60-1.00) g/dL Beta Globulins 0.30 L (0.60-1.30) g/dL Gamma Globulins 0.41 L (0.70-1.50) g/dL Crossmatch See Detail 06/16/23 06/16/23 Range/Units 06:55 06:55 RBC (4.30-5.90) m/uL Hgb (13.0-17.5) gm/dL Hct (39.0-53.0) % MCV (80.0-100.0) fL MCH (25.0-35.0) pg RDW (11.5-15.5) % Plt Count (150-450) k/uL Macrocytosis PT 12.8 H (10.0-12.5) sec INR 1.2 H (<1.2) Sodium 133 L (137-145) mmol/L Chloride 108 H (98-107) mmol/L BUN <2 L (9-20) mg/dL Creatinine 0.59 L (0.66-1.25) mg/dL Calcium 8.2 L (8.4-10.2) mg/dL Total Bilirubin 1.7 H (0.2-1.3) mg/dL Total Protein 5.0 L (6.3-8.2) g/dL Albumin 2.7 L (3.5-5.0) g/dL Albumin (PEP) (3.80-4.90) g/dL Vpxik-2-Mtfjoofyp (0.60-1.00) g/dL Beta Globulins (0.60-1.30) g/dL Gamma Globulins (0.70-1.50) g/dL Crossmatch
[2023-06-17 06:14] LABS: Anisocytosis Marked; HCT 23.6 % (39.0-53.0); HGB 7.8 gm/dL (13.0-17.5); MCH 37.8 pg (25.0-35.0); MCHC 33.2 g/dL (31.0-37.0); Macrocytosis Marked; Mean Platelet Volume 10.5; Platelet Count 101 k/uL (150-450); RBC 2.07 m/uL (4.30-5.90); WBC 4.8 k/uL (3.8-10.6)
[2023-06-17 06:16] LABS: RDW 26.6 % (11.5-15.5)
[2023-06-17 06:22] LABS: ALT 10 U/L (4-49); AST 22 U/L (17-59); African American GFR (CKD) >90 (>60 ml/min/1.73 sqM); Albumin 2.4 g/dL (3.5-5.0); Albumin/Globulin Ratio 1.1; Alkaline Phosphatase 61 U/L (38-126); Anion Gap 2 mmol/L; Blood Urea Nitrogen <2 mg/dL (9-20); Calcium 7.8 mg/dL (8.4-10.2); Carbon Dioxide 25 mmol/L (22-30); Chloride 109 mmol/L (98-107); Globulin 2.1 g/dL; Glucose 88 mg/dL (74-99); Non-African American GFR(CKD) >90 (>60 ml/min/1.73 sqM); Potassium 3.6 mmol/L (3.5-5.1); Sodium 136 mmol/L (137-145); Total Bilirubin 1.2 mg/dL (0.2-1.3); Total Protein 4.5 g/dL (6.3-8.2)
[2023-06-17] MEDS: PANTOPRAZOLE 40 MG TABLET PO SCH (08:51)
[2023-06-17] MEDS: HYDROcodone/APAP 10-325MG 1 EACH TAB PO PRN (08:52)
--- NOTE | 2023-06-17 12:59 | P.PN ---
Subjective Progress Note Date: 06/16/23 S/p EGD and colonoscopy. No acute bleeding/melena noted. Scopes revealed mild gastritis, small hiatal hernia, mild distal esophagitis and mild diverticulosis. Hemoglobin stable at 8.8, s/p 1 unit PRBCs. Objective - Vital Signs Vital signs: Vital Signs Temp 98.1 F 06/16/23 12:25 Pulse 61 06/16/23 12:25 Resp 18 06/16/23 12:25 BP 135/68 06/16/23 12:25 Pulse Ox 97 06/16/23 12:25 FiO2 Intake & Output 06/15/23 06/16/23 06/16/23 18:59 06:59 18:59 Intake Total 510 1260 Output Total 850 725 Balance 510 410 -725 Weight 78.8 kg Intake: IV 200 Intake, IV Titration 900 Amount Dextrose 5%-0.45% NaCl 1, 900 000 ml @ 75 mls/hr IV . [id number] [facility] Rx#:[id number] Oral 360 Blood Product 310 Rc As-1 Unit 310 [id number] Output: Urine 850 725 Other: Voiding Method Bedside Commode Bedside Commode Urinal Urinal # Voids 2 2 # Bowel Movements 2 - Constitutional General appearance: Present: average body habitus, no acute distress - EENT Eyes: Present: anicteric sclerae, EOMI ENT: Present: hearing grossly normal - Respiratory Details: breathing is even and unlabored - Cardiovascular Details: skin warm and dry - Integumentary Integumentary: Absent: cyanotic, jaundiced - Musculoskeletal Musculoskeletal: Present: strength equal bilaterally - Psychiatric Psychiatric: Present: A&O x's 3 - Labs CBC & Chem 7: 06/17/23 05:42 06/17/23 05:42 Labs: Abnormal Lab Results - Last 24 Hours (Table) 06/13/23 06/14/23 06/16/23 Range/Units 08:48 21:36 06:55 RBC 2.30 L (4.30-5.90) m/uL Hgb 8.8 L D (13.0-17.5) gm/dL Hct 26.0 L (39.0-53.0) % MCV 112.9 H (80.0-100.0) fL MCH 38.1 H (25.0-35.0) pg RDW 26.7 H (11.5-15.5) % Plt Count 113 L (150-450) k/uL Macrocytosis Marked A PT (10.0-12.5) sec INR (<1.2) Sodium (137-145) mmol/L Chloride (98-107) mmol/L BUN (9-20) mg/dL Creatinine (0.66-1.25) mg/dL Calcium (8.4-10.2) mg/dL Total Bilirubin (0.2-1.3) mg/dL Total Protein (6.3-8.2) g/dL Albumin (3.5-5.0) g/dL Albumin (PEP) 2.02 L (3.80-4.90) g/dL Tljzw-1-Ynrkwucjj 0.29 L (0.60-1.00) g/dL Beta Globulins 0.30 L (0.60-1.30) g/dL Gamma Globulins 0.41 L (0.70-1.50) g/dL Crossmatch See Detail 06/16/23 06/16/23 Range/Units 06:55 06:55 RBC (4.30-5.90) m/uL Hgb (13.0-17.5) gm/dL Hct (39.0-53.0) % MCV (80.0-100.0) fL MCH (25.0-35.0) pg RDW (11.5-15.5) % Plt Count (150-450) k/uL Macrocytosis PT 12.8 H (10.0-12.5) sec INR 1.2 H (<1.2) Sodium 133 L (137-145) mmol/L Chloride 108 H (98-107) mmol/L BUN <2 L (9-20) mg/dL Creatinine 0.59 L (0.66-1.25) mg/dL Calcium 8.2 L (8.4-10.2) mg/dL Total Bilirubin 1.7 H (0.2-1.3) mg/dL Total Protein 5.0 L (6.3-8.2) g/dL Albumin 2.7 L (3.5-5.0) g/dL Albumin (PEP) (3.80-4.90) g/dL Efzfx-4-Wwoeaubrg (0.60-1.00) g/dL Beta Globulins (0.60-1.30) g/dL Gamma Globulins (0.70-1.50) g/dL Crossmatch Assessment and Plan (1) Anemia Current Visit: Yes Status: Acute Priority: High Code(s): D64.9 - ANEMIA, UNSPECIFIED SNOMED Code(s): 169538141 Plan: Macrocytic anemia: Presented for abnormal labs, with low hemoglobin that was noted on CBC that was performed by his PCP. Patient states he has been having mild epigastric discomfort as well as intermittent positional dizziness over the last couple weeks. Denies nausea vomiting diarrhea. Denies blood in stool and melena. States he has no known history of previous anemia or blood transfusions. No labs in EMR to trend. Last colonoscopy was approximately 6 years ago which was normal per patient. Patient does report frequent alcohol use, states he drinks approximately 1 pint of liquor every other day. - On admission hemoglobin was noted at 6.1, MCV 129.5, WBC 4.2, platelets 142,000. S/p 1 unit of blood, repeat hemoglobin showed appropriate response, with hgb 7.5. Required subsequent unit PRBCs for hgb 6.9. No previous labs in EMR to trend -Iron studies obtained, iron saturation 83.2%, ferritin 291. Had spoken to to lab and asked if iron studies, haptoglobin and LDH could be ran on pretransfusion blood however it does not appear this was done. LDH 1754, haptoglobin less than 10. Reticulocyte 0.7. Bilirubin 1.7. Vitamin B12 275, folate 410. Do not believe this is hemolysis, as pt had an appropriate response to blood transfusion, and this would typically not be seen with hemolytic anemia, however difficult to interpret anemia and hemolysis labs s/p blood transfusion, as this can affect studies. Anemia appears to be more likely to be r/t to GI bleed and possible component of bone marrow suppression r/t ETOH abuse -Vit B12 on low end of normal. MMA pending. Will also obtain paraproteinemia labs -Paraproteinemia workup revealed mild elevation in [place]/lambda LCs, with normal ratio. SPEP and immunofixation negative for paraprotein -CT abdomen pelvis with contrast showed no definite CT evidence of acute processes. Nondilated, scattered, fluid-filled loops of bowel measuring up to 2.4 cm with questionable enhancing wall which may indicate a mild enteritis -General surgery consulted. S/p EGD and colonoscopy. No acute bleeding/melena noted. Scopes revealed mild gastritis, small hiatal hernia, mild distal esophagitis and mild diverticulosis. Anemia thought could be related to chronic gastritis and poor nutritional state -Spoke with IM team, will add parenteral iron. If MMA elevated will also add Vit B12 supplementation. Clinic f/u will be scheduled in - to recheck anemia workup. Pt was agreeable with this plan -Continue to monitor CBC. Please transfuse for hgb < 7 or if symptomatic Doctor attests: I performed a history and physical examination of this patient, developed impression and plan of care. Discussed with dictator. I agree with dictators note, documented as a scribe.
[2023-06-17 13:25] LABS: Anisocytosis Marked; HCT 27.6 % (39.0-53.0); MCH 37.8 pg (25.0-35.0); MCHC 33.7 g/dL (31.0-37.0); MCV 112.1 fL (80.0-100.0); Macrocytosis Marked; Mean Platelet Volume 10.3; Platelet Count 130 k/uL (150-450); RBC 2.47 m/uL (4.30-5.90); WBC 5.6 k/uL (3.8-10.6)
[2023-06-17 13:31] LABS: RDW 26.4 % (11.5-15.5)
[2023-06-17 13:32] LABS: HGB 9.3 gm/dL (13.0-17.5)
--- NOTE | 2023-06-17 18:02 | P.PN ---
Subjective Progress Note Date: 06/17/23 (delayed charting seen at 0830) Patient is a 67-year-old male with hypertension, dyslipidemia, coronary artery disease status post stenting, and GERD who has not seen a PCP in several years prior to last week who presented to the hospital at the direction of his outpatient physician due to to low blood counts. On arrival to the ER here his vitals were within normal limits. Laboratory analysis included CBC, coagulation studies, CMP, and troponin which were remarkable for hemoglobin 6.1, hematocrit 17.3, platelet count of 142, INR 1.2, sodium 132, potassium 3.4, and bilirubin of 1.5. Fecal occult blood testing was negative. Patient underwent CT abdomen and pelvis which was unremarkable for nondilated fluid-filled bowel loops measuring up to 2.4 cm possible enhancing wall indicating enteritis. Chest x- ray demonstrated no acute process. EKG demonstrated sinus rhythm at a rate of [address]-T wave changes. Patient was ordered 1 unit of packed red blood cells. He was given 1 dose of Dilaudid. Arrangements were made for admission. Vascular surgery was consulted due to chronic leg pain. General surgery was consulted for possible EGD and colonoscopy. Hematology and oncology were consulted due to possible hemolytic anemia. In the next morning repeat labs again showed a hemoglobin of 6.9 and 1 additional unit of packed red blood cells were ordered. Blood counts are again low on the morning of 06/15/2023 and he needed 1 additional unit of packed red blood cells. Patient underwent EGD and colonoscopy on 06/15/2023 which showed small rectal polyp as well as some gastritis but no overt signs of bleeding. His hemoglobin stabilized by 06/16/23. Patient seen and examined at bedside. Still with lower extremity pain. No nausea. No vomiting. No diarrhea. No overt signs of bleeding. No other complaints at this time. We discussed that his HgB is 1 g lower today and needing to continue to monitor. Vital signs reviewed General: Nontoxic, no distress, appears at stated age Cardiovascular: S1S2 reg, no murmur Lungs: CTA bilateral, no rhonchi, no rales, no accessory muscle use Abdominal: Soft, nontender to palpation, no guarding Ext: No gross muscle atrophy, no edema b/l lower extremities, no contractures Neuro: CN II-XI grossly intact, no focal neuro deficits Psych: Alert, oriented, appropriate affect Assessment/Plan: Symptomatic anemia Thrombocytopenia Coagulopathy GERD Alcoholic gastritis -Case discussed with Dr. Daniel. Outpatient follow-up in the office in approximately 4 weeks with repeat blood work. -IV iron 125 mg D # 2 -Protonix 40 mg oral BID -B12 low normal, and iron studies normal -Retic index 0.12 -GABBY negative - s/p 3 units of pRBC -Repeat CBC in a.m. - B12 1000 mcg daily - monitor for an additional 24 hours to ensure that his hemoglobin is stable. Claudication, Chronic severe peripheral arterial disease Intractable pain when standing - Neurontin 300 mg oral 3 times daily, [place] 5/325 every 4 hours as needed for moderate pain, and Dilaudid 0.5 mg every 3 hours as needed for severe pain -Vascular surgery recs: Patient will need surgical intervention once blood counts are improved. Will need to follow-up in the office with Dr. Bailey. Nicotine dependency -Nicotine patch 14 mcg daily, nicotine gum 2 mg every 2 hours as needed for nicotine cravings Alcohol dependency - oral CIWA protocol with Ativan dosing per CIWA scale, thiamine 100 mg daily, folic acid 1 mg daily History of, but not currently taking medications for: Hypertension Dyslipidemia Coronary artery disease status post stenting Imaging: None new Data Review: Labs reviewed from today include CBC, coags, and CMP which is remarkable for hemoglobin 7.8, platelets 101, sodium 136, total bilirubin 1.7. DVT prophylaxis: Heparin Anticipated discharge date: in AM Anticipated discharge place: Home with home health This dictation was prepared using [employer] voice recognition software. Though every attempt is made to correct errors during dictation some may still exist. Objective - Vital Signs Vital signs: Vital Signs Temp 97.9 F 06/17/23 13:50 Pulse 64 06/17/23 13:50 Resp 16 06/17/23 13:50 BP 103/61 06/17/23 13:50 Pulse Ox 98 06/17/23 13:50 FiO2 Intake & Output 06/16/23 06/17/23 06/17/23 18:59 06:59 18:59 Intake Total 240 Output Total 950 700 650 Balance -598 -960 -402 Weight 79.1 kg Intake: Oral 240 Output: Urine 950 700 650 Other: Voiding Method Bedside Commode Urinal Urinal - Labs CBC & Chem 7: 06/17/23 13:06 06/17/23 05:42 Labs: Abnormal Lab Results - Last 24 Hours (Table) 06/17/23 06/17/23 06/17/23 Range/Units 05:42 05:42 13:06 RBC 2.07 L 2.47 L (4.30-5.90) m/uL Hgb 7.8 L 9.3 L D (13.0-17.5) gm/dL Hct 23.6 L 27.6 L (39.0-53.0) % MCV 114.0 H 112.1 H (80.0-100.0) fL MCH 37.8 H 37.8 H (25.0-35.0) pg RDW 26.6 H 26.4 H (11.5-15.5) % Plt Count 101 L 130 L (150-450) k/uL Macrocytosis Marked A Marked A Sodium 136 L (137-145) mmol/L Chloride 109 H (98-107) mmol/L BUN <2 L (9-20) mg/dL Creatinine 0.55 L (0.66-1.25) mg/dL Calcium 7.8 L (8.4-10.2) mg/dL Total Protein 4.5 L (6.3-8.2) g/dL Albumin 2.4 L (3.5-5.0) g/dL
[2023-06-17] MEDS: HYDROmorphone 0.5 MG/0.5 ML SYRINGE IVP PRN (19:40)
[2023-06-17 21:17] VITALS: RESP 18
[2023-06-18 07:59] LABS: Anisocytosis Marked; HGB 8.2 gm/dL (13.0-17.5); Hypochromasia Slight; MCH 37.3 pg (25.0-35.0); MCHC 32.7 g/dL (31.0-37.0); MCV 114.4 fL (80.0-100.0); Macrocytosis Marked; Mean Platelet Volume 10.1; Platelet Count 109 k/uL (150-450); Poikilocytosis Slight; RBC 2.18 m/uL (4.30-5.90); WBC 5.6 k/uL (3.8-10.6)
[2023-06-18 08:00] LABS: RDW 26.1 % (11.5-15.5)
[2023-06-18 08:22] VITALS: BP 147/75; PULSE 83; TEMP 97.6
[2023-06-18] MEDS: HYDROmorphone 0.5 MG/0.5 ML SYRINGE IVP STA (11:33)
--- NOTE | 2023-06-18 15:07 | P.DS ---
Providers Date of admission: 06/14/23 12:07 Expected date of discharge: 06/18/23 Attending physician: Iris Penn DO Consults: 06/13/23 15:11 Consult Physician Urgent Consulting Provider: Belinda Madrid Consult Reason/Comments: anemia Do you want consulting provider notified?: Yes 06/13/23 19:35 Consult Physician Routine Consulting Provider: Cricket Aquino Consult Reason/Comments: PAD with claudacation Do you want consulting provider notified?: Yes Primary care physician: Stated None Hospital Course: Discharge Diagnosis: Symptomatic anemia with relative B12 deficiency and relative iron deficiency in conjunction with bone marrow suppression from ETOH Thrombocytopenia Coagulopathy GERD Alcoholic gastritis Claudication, Chronic severe peripheral arterial disease Intractable pain when standing Nicotine dependency Alcohol dependency Hypertension Dyslipidemia Coronary artery disease status post stenting Hospital Course: Patient is a 67-year-old male with hypertension, dyslipidemia, coronary artery disease status post stenting, and GERD who has not seen a PCP in several years prior to last week who presented to the hospital at the direction of his outpatient physician due to to low blood counts. On arrival to the ER here his vitals were within normal limits. Laboratory analysis included CBC, coagulation studies, CMP, and troponin which were remarkable for hemoglobin 6.1, hematocrit 17.3, platelet count of 142, INR 1.2, sodium 132, potassium 3.4, and bilirubin of 1.5. Fecal occult blood testing was negative. Patient underwent CT abdomen and pelvis which was unremarkable for nondilated fluid-filled bowel loops measuring up to 2.4 cm possible enhancing wall indicating enteritis. Chest x- ray demonstrated no acute process. EKG demonstrated sinus rhythm at a rate of [address]-T wave changes. Patient was ordered 1 unit of packed red blood cells. He was given 1 dose of Dilaudid. Arrangements were made for admission. Vascular surgery was consulted due to chronic leg pain. General surgery was consulted for possible EGD and colonoscopy. Hematology and oncology were consulted due to possible hemolytic anemia. In the next morning repeat labs again showed a hemoglobin of 6.9 and 1 additional unit of packed red blood cells were ordered. Blood counts are again low on the morning of 06/15/2023 and he needed 1 additional unit of packed red blood cells. Patient underwent EGD and colonoscopy on 06/15/2023 which showed small rectal polyp as well as some gastritis but no overt signs of bleeding. His hemoglobin stabilized by 06/16/23. He was determined stable for discharge home. Follow-up: Dr. Gar in 1 to 2 days. Recommend repeat blood counts at that appointment, Dr. Daniel in 2 weeks, Dr. Bailey in 1 to 2 days. Patient was told to stop smoking and avoid alcohol. Patient seen and examined at bedside. He continues to have his chronic leg pain. We went over his plan of care including new medications and the importance of following up. All questions answered. Vital signs reviewed and stable. General: Nontoxic, no distress, appears at stated age Cardiovascular: S1S2 reg, no murmur, positive posterior tibial pulse bilateral, Lungs: CTA bilateral, no rhonchi, no rales, no accessory muscle use Abdominal: Soft, nontender to palpation, no guarding, no appreciable organomegaly Ext: No gross muscle atrophy, no edema b/l lower extremities, no contractures Neuro: CN II-XI grossly intact, no focal neuro deficits Psych: Alert, oriented, appropriate affect A total of 42 minutes of time were spent preparing this complex discharge summary. Patient was discharged on 06/18/23. This dictation was prepared using [employer] voice recognition software. Though every attempt is made to correct errors during dictation some may still exist. Patient Condition at Discharge: Fair Plan - Discharge Summary New Discharge Prescriptions: New Omeprazole [PriLOSEC] 20 mg PO AC-BRKFST #90 cap Gabapentin [Neurontin] 300 mg PO TID #90 cap Thiamine [Vitamin B-1] 100 mg PO DAILY #30 tab Cyanocobalamin/Cobamamide [Vitamin B-12 5,000 Mcg Tab Sl] 1 tab SUBLINGUAL DAILY #30 tab Folic Acid 1 mg PO DAILY #30 tab HYDROcodone/APAP 10-325MG [[place] 10-325] 1 each PO Q6HR PRN #21 tab PRN Reason: Severe Pain (Scale 7 To 10) Discharge Medication List Omeprazole [PriLOSEC] 20 mg PO AC-BRKFST #90 cap 06/15/23 [Rx] Cyanocobalamin/Cobamamide [Vitamin B-12 5,000 Mcg Tab Sl] 1 tab SUBLINGUAL DAILY #30 tab 06/18/23 [Rx] Folic Acid 1 mg PO DAILY #30 tab 06/18/23 [Rx] Gabapentin [Neurontin] 300 mg PO TID #90 cap 06/18/23 [Rx] HYDROcodone/APAP 10-325MG [[place] 10-325] 1 each PO Q6HR PRN #21 tab 06/18/23 [Rx] Thiamine [Vitamin B-1] 100 mg PO DAILY #30 tab 06/18/23 [Rx] Follow up Appointment(s)/Referral(s): Johan Daniel [STAFF PHYSICIAN] - 4 Weeks Pamela Bailey DO [STAFF PHYSICIAN] - 1 Week None,Stated [Primary Care Provider] - 1-2 days Patient Instructions/Handouts: How to Stop Smoking (DC), Gastritis (DC), Cigarette Smoking and Your Health (GEN), Peripheral Artery Disease (DC) Activity/Diet/Wound Care/Special Instructions: Activity: As tolerated Diet: Heart Healthy Special Instructions: PCP: DR KENT - [id number] [place] [address] - Phone: Abstain from alcohol Please follow up with Dr. Daniel and your Primary to ensure that your blood count stay stable. This was you can prepare for surgery to help with your leg pain. You should stop smoking it will also help with your leg pain. We recommend that your PCP draws a blood count next week at your follow-up Discharge Disposition: HOME WITH HOME HEALTH SERVICES
== END 2023-06-18 12:26 | disposition home health service (06) | DRG 812 ==
LOC: EC 08:11 → 3SCARD 15:20 → 5NMEDONC 06-14 08:00 → OBSVTOIN 06-14 12:07 → 5NMEDONC 06-14 14:57
PROVIDERS: ADMIT Internal Medicine; ATTEND Internal Medicine
PROC: 30233N1 Transfusion of Nonautologous Red Blood Cells into Peripheral Vein, Percutaneous Approach (ICD-10-PCS; 2023-06-14)
PROC: 0DB78ZX Excision of Stomach, Pylorus, Via Natural or Artificial Opening Endoscopic, Diagnostic (ICD-10-PCS; principal; 2023-06-15 12:30)
PROC: 0DBP8ZZ Excision of Rectum, Via Natural or Artificial Opening Endoscopic (ICD-10-PCS; 2023-06-15 12:30)
DX: D64.9 Anemia, unspecified (principal); D68.9 Coagulation defect, unspecified; K29.20 Alcoholic gastritis without bleeding; K21.00 Gastro-esophageal reflux disease with esophagitis, without bleeding; K44.9 Diaphragmatic hernia without obstruction or gangrene; K57.30 Diverticulosis of large intestine without perforation or abscess without bleeding; K62.1 Rectal polyp; I25.10 Atherosclerotic heart disease of native coronary artery without angina pectoris; I10 Essential (primary) hypertension; G89.29 Other chronic pain; E78.5 Hyperlipidemia, unspecified; E53.8 Deficiency of other specified B group vitamins; D69.6 Thrombocytopenia, unspecified; E11.51 Type 2 diabetes mellitus with diabetic peripheral angiopathy without gangrene; D50.9 Iron deficiency anemia, unspecified; F10.20 Alcohol dependence, uncomplicated; F17.210 Nicotine dependence, cigarettes, uncomplicated; Z79.899 Other long term (current) drug therapy; I25.2 Old myocardial infarction; Z95.5 Presence of coronary angioplasty implant and graft
CPT/HCPCS: 36415; 36430; 43239; 45385; 71046; 74177; 75635; 80053; 82272; 82607; 82728; 82747; 82784; 83010; 83540; 83550; 83605; 83615; 83735; 83883; 83921; 84165; 84443; 84484; 85025; 85027; 85045; 85610; 85730; 86334; 86850; 86880; 86900; 86901; 86920; 88305; 93005; 93923; 96361; 96372; 96374; 96375; 96376; 99291

== ENCOUNTER 2023-08-03 11:45 | Day surgery (SDC) | payer MEDICARE ==
[~2023-08-03 11:45] MED LIST: ALPRAZolam 0.25 MG TAB PO PRN; ALPRAZolam 0.5 MG TAB PO PRN; ASPIRIN 325 MG TAB PO PRN; HEPARIN SODIUM,PORCINE (1 ML) 2,500 UNIT in SODIUM CHLORIDE 0.9% 250 ML IRRIGATION PRN; HEPARIN SODIUM,PORCINE 10,000 UNIT in SODIUM CHLORIDE 0.9% 1,000 ML IRRIGATION PRN; ZOLPIDEM 5 MG TAB PO PRN
[2023-08-03] MEDS: EMPTY BAG 1 BAG with SODIUM CHLORIDE 0.9% 1,000 ML IV SCH (12:14)
[2023-08-03] MEDS: HYDROcodone/APAP 10-325MG 1 EACH TAB PO ONE (12:18)
[2023-08-03] MEDS: HYDROcodone/APAP 10-325MG 1 EACH TAB ONE (12:21)
[2023-08-03 12:28] VITALS: RESP 16; TEMP 97.7
[2023-08-03 12:34] LABS: Anisocytosis Slight; Basophils # (A) 0.1 k/uL (0-0.2); Basophils % (A) 1 %; Eosinophils # (A) 0.4 k/uL (0-0.7); Eosinophils % (A) 4 %; HCT 46.8 % (39.0-53.0); Hypochromasia Slight; Lymphocytes # (A) 2.3 k/uL (1.0-4.8); Lymphocytes % (A) 21 %; MCHC 30.5 g/dL (31.0-37.0); Macrocytosis Slight; Mean Platelet Volume 9.2; Monocytes # (A) 1.1 k/uL (0-1.0); Monocytes % (A) 10 %; Neutrophils # (A) 7.1 k/uL (1.3-7.7); Neutrophils % (A) 63 %; RBC 4.76 m/uL (4.30-5.90); RDW 18.3 % (11.5-15.5); WBC 11.2 k/uL (3.8-10.6)
[2023-08-03] MEDS: IV FLUID CONTINUATION 1,000 ML IV ONE (12:34)
[2023-08-03 12:38] LABS: HGB 14.3 gm/dL (13.0-17.5)
[2023-08-03 12:39] LABS: MCV 98.5 fL (80.0-100.0); Platelet Count 294 k/uL (150-450)
[2023-08-03 12:46] LABS: African American GFR (CKD) >90 (>60 ml/min/1.73 sqM); Anion Gap 6 mmol/L; Blood Urea Nitrogen 6 mg/dL (9-20); Calcium 9.1 mg/dL (8.4-10.2); Carbon Dioxide 23 mmol/L (22-30); Chloride 110 mmol/L (98-107); Glucose 94 mg/dL (74-99); Non-African American GFR(CKD) >90 (>60 ml/min/1.73 sqM); Potassium 3.6 mmol/L (3.5-5.1); Sodium 139 mmol/L (137-145)
[2023-08-03] MEDS ORDERED: LIDOCAINE 1% INJ 10MG/ML (20 ML MDV) ONE (14:08)
[2023-08-03] MEDS ORDERED: HEPARIN SODIUM 1,000 UN/ML (10ML VL) ONE (14:09)
[2023-08-03] MEDS ORDERED: fentaNYL (PF) 50 MCG/ML 2 ML AMP ONE (14:09)
[2023-08-03] MEDS ORDERED: VERAPAMIL 2.5 MG/ML 2 ML AMP ONE (14:09)
[2023-08-03] MEDS: MIDAZOLAM 2 MG/2 ML VIAL IVP ONE ×2 (14:29)
[2023-08-03] MEDS: fentaNYL (PF) 50 MCG/1 ML VIAL IVP ONE (14:29)
[2023-08-03] MEDS: LIDOCAINE 1% INJ 10MG/ML (30 ML VIAL-PF) SQ ONE (14:30)
[2023-08-03] MEDS: VERAPAMIL SYRINGE (5 MG/10 ML) INTRAARTER ONE (14:31)
[2023-08-03] MEDS: HEPARIN SODIUM 1,000 UN/ML (10ML VL) IV ONE (14:31)
[2023-08-03] MEDS: NITROGLYCERIN 1000MCG/10ML SYRINGE INTRAARTER ONE (14:37)
[2023-08-03] MEDS: IOPAMIDOL-250 100ML BTL INTRAARTER ONE (14:46)
[2023-08-03] MEDS: SODIUM CHLORIDE 0.9% 1,000 ML IV SCH (15:00)
[2023-08-03] MEDS: hydrALAZINE HCL 20 MG/ML 1 ML VIAL IVP STA (15:23)
--- NOTE | 2023-08-03 15:31 | P.OP ---
Date of Procedure: 08/03/23 Description of Procedure: preoperative diagnosis: Tanya 4 peripheral arterial disease bilateral lower extremity Postoperative diagnosis: Same Procedure: Ultrasound-guided left radial artery access Placement of catheter in infrarenal abdominal aorta, selective second order, from radial approach Aortogram with bilateral lower extremity runoffs Moderate conscious sedation with personal monitoring certified RN administration and personal hemodynamic monitoring for 20 minutes Surgeon: Pamela Zuniga D.O. EBL: Less than 5 cc IV fluids: See records Urine output: Not measured Drains: None Complications: None immediately apparent Condition: Stable to recovery Operative indication and findings: Patient is 67 a-year-old with peripheral vascular disease. On workup and evaluation was found to have abnormal ABIs prompting recommendations for an angiogram. Risks and benefits including but not limited to bleeding, infection, injury to the vessel, stroke, cardiopulmonary risks and ischemic changes to the extremities were discussed. They seemingly understood this willing to proceed. Procedure in detail: Patient was taken to the special suite and placed in supine position. The left upper extremity was prepped and draped in usual sterile fashion. A preprocedural timeout was performed, all parties were in agreement. Using the ultrasound, the radial artery was identified. The skin overlying was anesthetized with 1% lidocaine plain. The artery was patent without significant calcific disease and a permanent image was stored. Under direct visualization, the artery was accessed and Seldinger technique was used to place a 5 slender sheath. Catheters and wires were then used to selectively place a catheter across the subclavian, into the aortic arch and then selectively in the descending thoracic aorta and down into the abdominal aorta. Aortogram was performed. Catheter was then advanced to the level of the iliac bifurcation. A bilateral lower extremity step-off was performed. After satisfactory images, catheters and wires were removed. The sheath was removed and a TR band was placed. Angiographic interpretation: The aorta appears normal in course and caliber. Visualized portions of the renal, celiac, superior mesenteric and inferior mesenteric arteries appeared patent without significant disease. The bilateral common, internal and external iliac artery appeared patent without significant disease, may be mild iliac disease. The bilateral common femoral arteries appe ar patent with very mild disease. Shortly after takeoff, there is a occlusion of the bilateral superficial femoral arteries without any obvious residual flow. The profunda bilaterally appear very robust. On the right the popliteal artery reconstitutes at the level of P2 segment. On the left the superficial femoral artery reconstitutes just distal to the adductor canal. The popliteal arteries bilaterally appear patent without significant disease on the right the anterior tibial artery appears patent with occlusion of the mid vessel. The tibioperoneal trunk and posterior tibial and peroneal arteries appear patent without significant disease. The posterior tibial is patent to the level of the ankle. On the left, the anterior tibial artery appears to have an apparently high takeoff. The tibioperoneal trunk, posterior tibial and peroneal artery appear patent without significant disease. The posterior tibial a was patent to the ankle. Patient will likely need bilateral bypass Plan - Discharge Summary Discharge Rx Participant: No New Discharge Prescriptions: No Action Omeprazole [PriLOSEC] 20 mg PO AC-BRKFST #90 cap Gabapentin [Neurontin] 300 mg PO TID #90 cap HYDROcodone/APAP 10-325MG [[place] 10-325] 1 each PO Q6HR PRN #21 tab PRN Reason: Severe Pain (Scale 7 To 10) Discharge Medication List Omeprazole [PriLOSEC] 20 mg PO AC-BRKFST #90 cap 06/15/23 [Rx] Gabapentin [Neurontin] 300 mg PO TID #90 cap 06/18/23 [Rx] HYDROcodone/APAP 10-325MG [[place] 10-325] 1 each PO Q6HR PRN #21 tab 06/18/23 [Rx] Follow up Appointment(s)/Referral(s): Pamela Zuniga DO [STAFF PHYSICIAN] - 08/16/23 9:30 am Patient Instructions/Handouts: Moderate Sedation (DC), Angiogram (DC), After Radial Heart Catheterization (GEN) Activity/Diet/Wound Care/Special Instructions: No driving for two days Ok to shower tomorrow but no baths, pools, lakes, doing dishes by hand for 3 days. (REMOVE DRESSING TOMORROW AND NO NEED TO REAPPLY) Signs of infection IE: fever, rash, drainage from puncture site, swelling go to ER/doctor for immediate evaluation. Avoid using right wrist/hand to bend, flex, lift greater than 5 lbs for five days. For Heavy Bleeding of puncture site apply firm direct pressure and return to ER. Do not attempt to drive self. low sodium/low fat diet medications as directed by DR ZUNIGA Discharge Disposition: HOME SELF-CARE
[2023-08-03 18:58] VITALS: BP 150/66; PULSE 73
--- NOTE | 2023-08-04 09:02 | IR ---
EXAMINATION TYPE: IR angio abdominal w runoff Intraoperative/procedural fluoroscopic services were pr ovided. CLINICAL INDICATION:Male, 67 years old with history of AO RUNOFF, 2.3 MINS, 0.056MGY; , [facility] Total fluoroscopy time is 2.3 min. DAP: 2.63 Gycm2 Please see the operative/procedural note for further details.
== END 2023-08-03 19:07 | disposition home or self-care (01) ==
LOC: CATHCVL 11:45 → 6NMEDSUR 14:56 → CATHCVL 19:07
PROVIDERS: ATTEND Surgery
DX: I70.223 Atherosclerosis of native arteries of extremities with rest pain, bilateral legs (principal); F10.90 Alcohol use, unspecified, uncomplicated; F17.200 Nicotine dependence, unspecified, uncomplicated
CPT/HCPCS: 36200; 75625; 75716; 76937; 80048; 85025; J2250; J0360; J2001; J1644; Q9966; J3010; J2305

== ENCOUNTER 2023-11-22 07:09 | Emergency (ER) | payer MEDICARE, OTHER ==
[2023-11-22 07:15] VITALS: TEMP 98.5
[2023-11-22] MEDS: GABAPENTIN 300 MG CAP PO STA (08:03)
[2023-11-22] MEDS: LIDOCAINE 4% PATCH TOPICAL ONE (08:04)
[2023-11-22] MEDS: SODIUM CHLORIDE 0.9% 1,000 ML IV STA (08:15)
[2023-11-22] MEDS: HYDROmorphone 1 MG/ML 1 ML SYRINGE IVP STA ×3 (08:15→12:01)
[2023-11-22 08:27] LABS: Anisocytosis Slight; Basophils % (A) 0 %; Eosinophils # (A) 0.2 k/uL (0-0.7); Eosinophils % (A) 1 %; HCT 47.5 % (39.0-53.0); HGB 15.4 gm/dL (13.0-17.5); Lymphocytes # (A) 1.8 k/uL (1.0-4.8); Lymphocytes % (A) 14 %; MCHC 32.4 g/dL (31.0-37.0); MCV 98.8 fL (80.0-100.0); Macrocytosis Slight; Mean Platelet Volume 9.2; Monocytes # (A) 1.1 k/uL (0-1.0); Monocytes % (A) 9 %; Neutrophils % (A) 73 %; Platelet Count 237 k/uL (150-450); RBC 4.81 m/uL (4.30-5.90); RDW 17.2 % (11.5-15.5); WBC 12.3 k/uL (3.8-10.6)
[2023-11-22 08:36] LABS: Partial Thromboplastin Time 27.1 sec (22.0-30.0); Prothrombin Time 10.9 sec (10.0-12.5)
[2023-11-22 08:46] LABS: ALT 11 U/L (4-49); AST 22 U/L (17-59); African American GFR (CKD) >90 (>60 ml/min/1.73 sqM); Albumin 3.8 g/dL (3.5-5.0); Alkaline Phosphatase 91 U/L (38-126); Anion Gap 7 mmol/L; Blood Urea Nitrogen 8 mg/dL (9-20); Calcium 9.2 mg/dL (8.4-10.2); Carbon Dioxide 26 mmol/L (22-30); Chloride 102 mmol/L (98-107); Glucose 98 mg/dL (74-99); Magnesium 1.9 mg/dL (1.6-2.3); Non-African American GFR(CKD) >90 (>60 ml/min/1.73 sqM); Potassium 4.3 mmol/L (3.5-5.1); Sodium 135 mmol/L (137-145); Total Bilirubin 1.6 mg/dL (0.2-1.3); Total Protein 6.5 g/dL (6.3-8.2)
--- NOTE | 2023-11-22 09:37 | CT ---
EXAMINATION TYPE: CT cervical spine wo con CT DLP: 593.7 mGycm, Automated exposure control for dose reduction was used. DATE OF EXAM: 11/22/2023 9:24 AM COMPARISON: None. CLINICAL INDICATION: Male, 68 years old with history of back pain; PHH, Severe neck pain TECHNIQUE: Axial CT images from the skull base to the inferior aspect of T2 we obtained without intra venous contrast. Coronal and sagittal reformatted images were also reviewed. Contrast used: mL of , (if blank None) Oral contrast used: (if blank None) FINDINGS: Fracture: None. Osseous structures: Multilevel degenerative disc disease changes with endplate spurring and disc oste ophyte complex's. Vertebral alignment: Straightening of the cervical alignment. Spinal canal/Neural Foramina: No evidence of significant spinal canal narrowing. No evidence for sign ificant neural foraminal stenosis. Neck soft tissues: Prevertebral soft tissues are within normal limits. Other: The airway is patent. The lung apices are clear. IMPRESSION: 1. No evidence of cervical spine fracture. 2. Mild to moderate multilevel degenerative disc disease. [facility], , 11/22/2023 9:35 AM
--- NOTE | 2023-11-22 09:46 | CT ---
EXAMINATION TYPE: CT thoracic spine wo con, CT chest angio for PE CT DLP: 1186.2 (accession [id number]), 491.6 (accession [id number]) mGycm, Automated exposure control for dose reduction was used. DATE OF EXAM: 11/22/2023 9:25 AM COMPARISON: June 29. CLINICAL INDICATION: Male, 68 years old with history of back pain; PHH, severe back pain (accession [id number]), SOB (accession [id number]) TECHNIQUE: Axial images of the thoracic spine were obtained without contrast. Coronal and sagittal re formats were performed. 3-D reformats of the bones were created on a separate workstation and submitt ed for review. TECHNIQUE/CONTRAST: CTA scan of the thorax is performed with IV Contrast, patient injected with 100 ml mL of Isovue 370, MIP images are created and reviewed these are created on a separate workstation.. Contrast used:100 ml mL of Isovue 370 with IV Contrast, none Oral contrast used: none FINDINGS: The thoracic vertebral bodies have preserved heights and alignment. Intervertebral discs and osseous structures have normal appearance. I do not see any evidence of extradural defects nor significant spinal canal narrowing at any thoraci c vertebral body level. Pulmonary Artery: There is no evidence for a filling defect within the pulmonary vasculature to sugge st acute pulmonary embolism. The pulmonary artery is of normal size. Lungs/Pleura: Mild intralobular septal thickening. No evidence of focal consolidation, pleural effusi on or pneumothorax. Streaky atelectasis in the lung bases. Airway: Large airways are patent. Heart: Normal heart is mildly enlarged for size. Vasculature: No evidence of aortic aneurysm. Mediastinum: No gross evidence of adenopathy. Musculoskeletal: No acute osseous abnormalities, no evidence for significant spinal canal neural fora randy stenosis. Mild multilevel osteophyte formation facet joint arthropathy. No spinal fracture defi nitely visualized. Soft Tissues/lymph nodes: Unremarkable. Lower neck: No significant findings. Upper Abdomen: No significant findings. IMPRESSION: 1. No evidence of pulmonary embolism. 2. Cardia mentally with mild pulmonary edema correlate with serum BNP. No evidence for spinal fractu re. 3. Multilevel moderate degeneration changes throughout the spine. 4. No evidence for spinal fracture. 5. No evidence for significant spinal canal or neural foraminal stenosis. [facility], , 11/22/2023 9:44 AM
--- NOTE | 2023-11-22 11:34 | ED ---
General Adult HPI - General Chief complaint: Back Pain/Injury Stated complaint: Back Pain Time Seen by Provider: 11/22/23 07:40 Source: patient, family, RN notes reviewed, old records reviewed Limitations: no limitations - History of Present Illness Initial comments: Patient is a 68-year-old male who presents emergency department complaining of chronic back pain. Ran out of his home pain meds. Pain is in the thoracic back as well as the cervical spine. States this is chronic. Is supposed to see palliative care for pain control but does not have a appointment coming up. Has not yet seen his PCP. Denies any new trauma. Presents for further evaluation at this time. Does have a cardiac history but denies any chest pain, abdominal pain, nausea, vomiting. Presents for further evaluation at this time. - Related Data Home Medications Medication Instructions Recorded Confirmed HYDROcodone/APAP 7.5-325MG [Calvert 1 tab PO DAILY PRN 11/22/23 11/22/23 7.5-325] Omeprazole [PriLOSEC] 20 mg PO AC-BRKFST 11/22/23 11/22/23 Pregabalin [Lyrica] 100 mg PO TID 11/22/23 11/22/23 Primidone 50 mg PO HS 11/22/23 11/22/23 Previous Rx's Medication Instructions Recorded Cyclobenzaprine [Flexeril] 5 mg PO TID PRN 7 Days #21 tablet 11/22/23 HYDROcodone/APAP 7.5-325MG [Calvert 1 tab PO Q6HR PRN 3 Days #12 tab 11/22/23 7.5-325] Lidocaine 5% Patch [Lidoderm 5% 1 patch TOPICAL DAILY PRN 14 Days 11/22/23 Patch] #14 patch Allergies Allergy/AdvReac Type Severity Reaction Status Date / Time No Known Allergies Allergy Verified 11/22/23 10:06 Review of Systems ROS Statement: Those systems with pertinent positive or pertinent negative responses have been documented in the HPI. Review of Systems: CONST: Denies fever EYES: Denies blurry vision ENT: Denies nasal congestion C/V: Denies Chest pain RESP: Denies shortness of breath GI: Denies abdominal pain : Denies dysuria SKIN: Denies rash. MSK: Endorses back pain NEURO: Denies headache ROS Other: All systems not noted in ROS Statement are negative. Past Medical History Past Medical History: GERD/Reflux, Hyperlipidemia, Hypertension, Myocardial Infarction (LA), Osteoarthritis (OA), Vascular Disorder Additional Past Medical History / Comment(s): leg & foot pain, fingertip pain, has been going on for a while Last Myocardial Infarction Date:: 2011 History of Any Multi-Drug Resistant Organisms: None Reported Past Surgical History: Heart Catheterization With Stent Additional Past Surgical History / Comment(s): HEART STENTS X2, colonoscopy Past Anesthesia/Blood Transfusion Reactions: No Reported Reaction Additional Past Anesthesia/Blood Transfusion Reaction / Comment(s): NEVER HAS HAD GENERAL ANESTHESIA Date of Last Stent Placement:: 2011 Past Psychological History: Depression Smoking Status: Current every day smoker Past Alcohol Use History: Rare Past Drug Use History: None Reported - Past Family History Father Family Medical History: Cancer Additional Family Medical History / Comment(s): COLON General Exam Limitations: no limitations Course Vital Signs 11/22/23 11/22/23 11/22/23 07:11 09:30 12:06 Temperature 98.5 F Pulse Rate 78 85 80 Respiratory 18 24 20 Rate Blood Pressure 175/75 172/82 180/88 O2 Sat by Pulse 98 95 97 Oximetry Medical Decision Making - Medical Decision Making Was pt. sent in by a medical professional or institution (, PA, IT BUSINESS ANALYST, urgent care, hospital, or jail...) When possible be specific @ -No Did you speak to anyone other than the patient for history (EMS, parent, family, police, friend...)? What history was obtained from this source @ -No Did you review nursing and triage notes (agree or disagree)? Why? @ -I reviewed and agree with nursing and triage notes Were old charts reviewed (outside hosp., previous admission, EMS record, old EKG, old radiological studies, urgent care reports/EKG's, jail records)? Report findings @ -Reviewed patient's maps which does show that patient was recently prescribed 30 days of Calvert and has not yet been 30 days for her to run out. Differential Diagnosis (chest pain, altered mental status, abdominal pain women, abdominal pain men, vaginal bleeding, weakness, fever, dyspnea, syncope, headache, dizziness, GI bleed, back pain, seizure, CVA, palpatations, mental health, musculoskeletal)? @ -Differential Back Pain: Strain, zoster, cauda equina syndrome, epidural abscess, vertebral osteomyelitis, discitis, fracture, subluxation, disc herniation, DJD, spinal stenosis, dissection, AAA, pancreatitis, peptic ulcer disease, pyelonephritis, kidney stone, this is not meant to be an all-inclusive list. EKG interpreted by me (3pts min.). @ -As above X-rays interpreted by me (1pt min.). @ -None done CT interpreted by me (1pt min.). @ -CT PE negative for PE. CT C-spine and thoracic spine remarkable for chronic degenerative changes. No obvious acute process present. U/S interpreted by me (1pt. min.). @ -None done What testing was considered but not performed or refused? (CT, X-rays, U/S, labs)? Why? @ -None What meds were considered but not given or refused? Why? @ -None Did you discuss the management of the patient with other professionals (professionals i.e. , PA, IT BUSINESS ANALYST, lab, RT, psych nurse, social research assistant, paper making machine operator, teacher, radiation safety officer, egg caser)? Give summary @ -No Was smoking cessation discussed for >3mins.? @ -No Was critical care preformed (if so, how long)? @ -No Were there social determinants of health that impacted care today? How? (Homelessness, low income, unemployed, alcoholism, drug addiction, transportation, low edu. Level, literacy, decrease access to med. care, long term, rehab)? @ -No Was there de-escalation of care discussed even if they declined (Discuss DNR or withdrawal of care, Hospice)? DNR status @ -No What co-morbidities impacted this encounter? (DM, HTN, Smoking, COPD, CAD, Cancer, CVA, ARF, Chemo, Hep., AIDS, mental health diagnosis, sleep apnea, morbid obesity)? @ -Chronic pain Was patient admitted / discharged? Hospital course, mention meds given and route, prescriptions, significant lab abnormalities, going to OR and other pertinent info. @ -Patient presents with chronic pain but states that his back pain is worse than normal. States he feels short of breath with deep inspiration as well. Denies any anterior chest pain. Has no other acute complaints at this time. We will obtain CT imaging of the back as well as chest. We will obtain labs. Patient was in agreement this plan. Vital signs within acceptable limits. EKG shows no signs of acute ischemia. Laboratory studies are within acceptable limits. CT C-spine, thoracic spine, CTA negative for any obvious acute traumatic injury and negative for PE. On reevaluation, patient is feeling improved. Discussed with the patient that I believe this is likely related to chronic pain and he is in agreement with. He did receive analgesia medications here in the department. Recommend that he follow-up with his PCP or pain management for further pain meds. He will be given a short course prescription for 3 days. He was in agreement this plan. I will provide the patient with a prescription for Calvert 7.5. I instructed the patient to follow up with their PCP in the next 1-3 days.. I explained that the patient should return to the emergency department if they experience any worsening symptoms. Strict return precautions were discussed with the patient. The patient expressed understanding of these instructions. I answered all questions that the patient had. The patient was discharged home in good condition with their prescriptions and follow up information. Undiagnosed new problem with uncertain prognosis? @ -No Drug Therapy requiring intensive monitoring for toxicity (Heparin, Nitro, Insulin, Cardizem)? @ -No Were any procedures done? @ -No Diagnosis/symptom? @ -Back pain, chronic pain Acute, or Chronic, or Acute on Chronic? @ -Acute on chronic Uncomplicated (without systemic symptoms) or Complicated (systemic symptoms)? @ -Uncomplicated Side effects of treatment? @ -No Exacerbation, Progression, or Severe Exacerbation? @ -No Poses a threat to life or bodily function? How? (Chest pain, [place], [place], pneumonia, PE, COPD, DKA, ARF, appy, cholecystitis, CVA, Diverticulitis, Homicidal, Suicidal, threat to staff... and all critical care pts) @ -Unlikely at this time - Lab Data Result diagrams: 11/22/23 08:03 11/22/23 08:03 Lab Results 11/22/23 11/22/23 11/22/23 Range/Units 08:03 08:03 08:03 WBC 12.3 H (3.8-10.6) k/uL RBC 4.81 (4.30-5.90) m/uL Hgb 15.4 (13.0-17.5) gm/dL Hct 47.5 (39.0-53.0) % MCV 98.8 (80.0-100.0) fL MCH 32.0 (25.0-35.0) pg MCHC 32.4 (31.0-37.0) g/dL RDW 17.2 H (11.5-15.5) % Plt Count 237 (150-450) k/uL MPV 9.2 Neutrophils % 73 % Lymphocytes % 14 % Monocytes % 9 % Eosinophils % 1 % Basophils % 0 % Neutrophils # 9.0 H (1.3-7.7) k/uL Lymphocytes # 1.8 (1.0-4.8) k/uL Monocytes # 1.1 H (0-1.0) k/uL Eosinophils # 0.2 (0-0.7) k/uL Basophils # 0.0 (0-0.2) k/uL Anisocytosis Slight Macrocytosis Slight PT 10.9 (10.0-12.5) sec INR 1.0 (<1.2) APTT 27.1 (22.0-30.0) sec Sodium 135 L (137-145) mmol/L Potassium 4.3 (3.5-5.1) mmol/L Chloride 102 (98-107) mmol/L Carbon Dioxide 26 (22-30) mmol/L Anion Gap 7 mmol/L BUN 8 L (9-20) mg/dL Creatinine 0.80 (0.66-1.25) mg/dL Est GFR (CKD-EPI)AfAm >90 (>60 ml/min/1.73 sqM) Est GFR (CKD-EPI)NonAf >90 (>60 ml/min/1.73 sqM) Glucose 98 (74-99) mg/dL Calcium 9.2 (8.4-10.2) mg/dL Magnesium 1.9 (1.6-2.3) mg/dL Total Bilirubin 1.6 H (0.2-1.3) mg/dL AST 22 (17-59) U/L ALT 11 (4-49) U/L Alkaline Phosphatase 91 (38-126) U/L Total Protein 6.5 (6.3-8.2) g/dL Albumin 3.8 (3.5-5.0) g/dL - EKG Data -: EKG Interpreted by Me EKG Comments: 12-lead Electrocardiogram Interpretation Note EKG was reviewed and interpreted by myself. 12-lead ECG performed at 0800 is interpreted by me as revealing normal sinus rhythm with PVCs at a rate of 76 beats per minute. [place] is normal. [place] interval is 168 ms, QRS duration is 92 ms, QTc is 427 ms.. There were no ST or T wave abnormalities to suggest myocardial ischemia or injury. R wave progression across the precordium was satisfactory. By my interpretation this EKG is non-diagnostic for acute ischemia. Disposition Clinical Impression: Back pain, Chronic pain Disposition: HOME SELF-CARE Condition: Good Instructions (If sedation given, give patient instructions): Acute Low Back Pain (ED) Prescriptions: Cyclobenzaprine [Flexeril] 5 mg PO TID PRN 7 Days #21 tablet PRN Reason: Pain Lidocaine 5% Patch [Lidoderm 5% Patch] 1 patch TOPICAL DAILY PRN 14 Days #14 patch PRN Reason: Pain HYDROcodone/APAP 7.5-325MG [Calvert 7.5-325] 1 tab PO Q6HR PRN 3 Days #12 tab PRN Reason: Pain Is patient prescribed a controlled substance at d/c from ED?: No Referrals: Nonstaff,Physician [Primary Care Provider] - 1-2 days Time of Disposition: 11:30
[2023-11-22 12:23] VITALS: BP 180/88; PULSE 80; RESP 20
== END 2023-11-22 12:22 | disposition home or self-care (01) ==
LOC: EC 07:09
DX: G89.29 Other chronic pain (principal); M54.9 Dorsalgia, unspecified; F17.200 Nicotine dependence, unspecified, uncomplicated
CPT/HCPCS: 36415; 93005; 80053; 83735; 85025; 85610; 85730; 72128; 72125; 71275; 99284; 96374; 96376 ×2; 96361; J1171; Q9967

== ENCOUNTER 2024-01-08 05:34 | Emergency (ER) | payer MEDICARE, OTHER ==
--- NOTE | 2024-01-08 06:13 | ED ---
Extremity Problem HPI - General Chief complaint: Extremity Problem,Nontraumatic Stated complaint: Pain Time Seen by Provider: 01/08/24 06:13 Source: patient, EMS, RN notes reviewed Mode of arrival: EMS Limitations: no limitations - History of Present Illness Initial comments: 68-year-old male presented to the ER with a chief complaint of left elbow and wrist pain. Patient states he has severe arthritis and tendinitis to his right elbow and wrist. He is prescribed Glenford 10s outpatient for pain control. Patient states his current prescriber is "screwing him over". He saw this prescriber on Monday and was supposed to follow-up with urine drug screens. Patient states he did this but has been out of his pain medication since then. He does report on Monday night he went to bed and woke up to severe pain to his left wrist. He denies any injuries or traumas. Denies any paresthesias. Patient was given 50 mcg of fentanyl twice by EMS prior to arrival. Patient denies any dizziness, lightheadedness, fevers, chills, chest pain, shortness of breath, abdominal pain, constipation/diarrhea, urinary complaints or peripheral edema. - Related Data Home Medications Medication Instructions Recorded Confirmed HYDROcodone/APAP 7.5-325MG [Glenford 1 tab PO DAILY PRN 11/22/23 11/22/23 7.5-325] Omeprazole [PriLOSEC] 20 mg PO AC-BRKFST 11/22/23 11/22/23 Pregabalin [Lyrica] 100 mg PO TID 11/22/23 11/22/23 Primidone 50 mg PO HS 11/22/23 11/22/23 Previous Rx's Medication Instructions Recorded Cyclobenzaprine [Flexeril] 5 mg PO TID PRN 7 Days #21 tablet 11/22/23 HYDROcodone/APAP 7.5-325MG [Glenford 1 tab PO Q6HR PRN 3 Days #12 tab 11/22/23 7.5-325] Lidocaine 5% Patch [Lidoderm 5% 1 patch TOPICAL DAILY PRN 14 Days 11/22/23 Patch] #14 patch HYDROcodone/APAP 7.5-325MG [Glenford 1 tab PO Q6HR PRN 3 Days #12 tab 01/08/24 7.5-325] Allergies Allergy/AdvReac Type Severity Reaction Status Date / Time No Known Allergies Allergy Verified 01/08/24 05:38 Review of Systems ROS Statement: Those systems with pertinent positive or pertinent negative responses have been documented in the HPI. ROS Other: All systems not noted in ROS Statement are negative. Past Medical History Past Medical History: GERD/Reflux, Hyperlipidemia, Hypertension, Myocardial Infarction (AL), Osteoarthritis (OA), Vascular Disorder Additional Past Medical History / Comment(s): leg & foot pain, fingertip pain, has been going on for a while Last Myocardial Infarction Date:: 2011 History of Any Multi-Drug Resistant Organisms: None Reported Past Surgical History: Heart Catheterization With Stent Additional Past Surgical History / Comment(s): HEART STENTS X2, colonoscopy Past Anesthesia/Blood Transfusion Reactions: No Reported Reaction Additional Past Anesthesia/Blood Transfusion Reaction / Comment(s): NEVER HAS HAD GENERAL ANESTHESIA Date of Last Stent Placement:: 2011 Past Psychological History: Depression Smoking Status: Current every day smoker Past Alcohol Use History: Rare Past Drug Use History: None Reported - Past Family History Father Family Medical History: Cancer Additional Family Medical History / Comment(s): COLON General Exam Limitations: no limitations General appearance: alert, in no apparent distress Respiratory exam: Present: normal lung sounds bilaterally. Absent: respiratory distress, wheezes, rales, rhonchi, stridor Cardiovascular Exam: Present: regular rate, normal rhythm, normal heart sounds. Absent: systolic murmur, diastolic murmur, rubs, gallop, clicks Extremities exam: Present: normal inspection, full ROM, tenderness (left elbow and wrist. 2+ left radial pulse.) Neurological exam: Present: alert, oriented X3, CN II-XII intact Skin exam: Present: warm, dry, intact, normal color. Absent: rash Course Vital Signs 01/08/24 01/08/24 01/08/24 05:35 07:49 08:28 Temperature 99.5 F 98.2 F Pulse Rate 96 65 95 Respiratory 18 17 16 Rate Blood Pressure 170/94 134/80 115/89 O2 Sat by Pulse 97 98 98 Oximetry - Reevaluation(s) Reevaluation #1: 01/08/24 07:54 MAPS overdose risk score 150 Last Glenford 10 refilled on 12/07/23 for a 30 day supply Medical Decision Making - Medical Decision Making Was pt. sent in by a medical professional or institution (Dr., PA, PHOTOGRAPHY AND PRINTS CURATOR, urgent care, hospital, or [facility]...) When possible be specific @ -No Did you speak to anyone other than the patient for history (EMS, parent, family, police, friend...)? What history was obtained from this source @ -No Did you review nursing and triage notes (agree or disagree)? Why? @ -I reviewed and agree with nursing and triage notes Were old charts reviewed (outside hosp., previous admission, EMS record, old EKG, old radiological studies, urgent care reports/EKG's, [facility] records)? Report findings @ -No old charts were reviewed Differential Diagnosis (chest pain, altered mental status, abdominal pain women, abdominal pain men, vaginal bleeding, weakness, fever, dyspnea, syncope, headache, dizziness, GI bleed, back pain, seizure, CVA, palpatations, mental health, musculoskeletal)? @ -Differential Musculoskeletal: Muscular strain, contusion, ligament sprain, fracture, arthritis, septic arthritis, bursitis, cellulitis, muscle spasm, nerve compression, DVT, arterial occlusion, herpes zoster, electrolyte abnormality, tumor.... This is not meant to be in all inclusive list EKG interpreted by me (3pts min.). @ -None done X-rays interpreted by me (1pt min.). @ -Left elbow x-ray and wrist x-ray negative for acute fractures or dislocations. CT interpreted by me (1pt min.). @ -None done U/S interpreted by me (1pt. min.). @ -None done What testing was considered but not performed or refused? (CT, X-rays, U/S, labs)? Why? @ -None What meds were considered but not given or refused? Why? @ -None Did you discuss the management of the patient with other professionals (professionals i.e. KAREN Nye, PHOTOGRAPHY AND PRINTS CURATOR, lab, RT, psych nurse, perinatal social worker, bullet assembly press operator, teacher, animal control officer, caser)? Give summary @ -No Was smoking cessation discussed for >3mins.? @ -No Was critical care preformed (if so, how long)? @ -No Were there social determinants of health that impacted care today? How? (Homelessness, low income, unemployed, alcoholism, drug addiction, tr ansportation, low edu. Level, literacy, decrease access to med. care, shelter, rehab)? @ -No Was there de-escalation of care discussed even if they declined (Discuss DNR or withdrawal of care, Hospice)? DNR status @ -No What co-morbidities impacted this encounter? (DM, HTN, Smoking, COPD, CAD, Cancer, CVA, ARF, Chemo, Hep., AIDS, mental health diagnosis, sleep apnea, morbid obesity)? @ -None Was patient admitted / discharged? Hospital course, mention meds given and route, prescriptions, significant lab abnormalities, going to OR and other pertinent info. @ -Discharge. 68-year-old male presented the ER with a chief complaint of chronic wrist pain. History and physical exam completed. Vitals within normal limits. Patient in no signs acute distress nontoxic-appearing. Patient is neurovascularly intact. X-rays obtained negative. Patient received symptomatic control in the ER, with improvement. Glenford prescribed. Patient is stable for discharged at this time. I strongly encourage patient to follow-up with palliative care provider upon discharge for further prescriptions. Strict return parameters discussed. Patient discharged in stable condition with follow-up to PCP. Patient verbally expressed understanding and agreement with care plan. Case discussed with ED attending, Dr. Newsome. Undiagnosed new problem with uncertain prognosis? @ -No Drug Therapy requiring intensive monitoring for toxicity (Heparin, Nitro, Insulin, Cardizem)? @ -No Were any procedures done? @ -No Diagnosis/symptom? @ -Chronic pain/wrist pain Acute, or Chronic, or Acute on Chronic? @ -Chronic Uncomplicated (without systemic symptoms) or Complicated (systemic symptoms)? @ -Uncomplicated Side effects of treatment? @ -No Exacerbation, Progression, or Severe Exacerbation? @ -No Poses a threat to life or bodily function? How? (Chest pain, [place], [place], pneumonia, PE, COPD, DKA, ARF, appy, cholecystitis, CVA, Diverticulitis, Homicidal, Suicidal, threat to staff... and all critical care pts) @ -No - Radiology Data Radiology results: report reviewed, image reviewed Disposition Clinical Impression: Chronic pain, Wrist pain Disposition: HOME SELF-CARE Condition: Stable Additional Instructions: Reach out to palliative care today to have Glenford refilled. Return to the ER for any new or worsening concerns Prescriptions: HYDROcodone/APAP 7.5-325MG [Glenford 7.5-325] 1 tab PO Q6HR PRN 3 Days #12 tab PRN Reason: Pain Is patient prescribed a controlled substance at d/c from ED?: No Referrals: Nonstaff,Physician [Primary Care Provider] - 1-2 days Time of Disposition: 07:54
[2024-01-08] MEDS: HYDROmorphone 1 MG/ML 1 ML SYRINGE IM STA (06:24)
[2024-01-08] MEDS: HYDROcodone/APAP 10-325MG 1 EACH TAB PO ONE (06:24)
[2024-01-08] MEDS: HYDROmorphone 1 MG/ML 1 ML SYRINGE IVP STA ×2 (06:25→08:10)
--- NOTE | 2024-01-08 07:21 | XR ---
EXAMINATION TYPE: XR elbow complete 3 views LT, XR hand complete 3 views LT DATE OF EXAM: 01/08/2024 COMPARISON: NONE CLINICAL INDICATION: Male, 68 years old with history of pain; FINDINGS: Elbow: Osteopenia. Suboptimal lateral view though no gross malalignment is seen. Unable to assess for elbow joint effusion. There is degenerative spurring at the ulnar trochlear joint. No displaced fracture se en. Hand: Osteopenia. Moderate degenerative change first CMC joint. A couple small loose bodies at the ulnocarp al joint region. Mild degenerative spurring at the DIP joints. No acute fracture, subluxation, disloc ation is seen. IMPRESSION: 1. Elbow: Inadequate lateral view. Unable to assess for elbow joint effusion. Further limitation due to osteopenia. There is osteoarthritic change at the ulnotrochlear joint. No obvious displaced fractu re seen. 2. Hand: Osteopenia. Moderate osteoarthritic change at the base of the thumb. No acute osseous abnorm ality seen. [facility], , 01/08/2024 7:18 AM
[2024-01-08] MEDS: ACET/COD 300 MG/30 MG STARTER PACK 6 TAB BTL PO STA (08:09)
[2024-01-08 08:29] VITALS: BP 115/89; PULSE 95; RESP 16; TEMP 98.2
== END 2024-01-08 08:32 | disposition home or self-care (01) ==
LOC: EC 05:34
DX: G89.29 Other chronic pain (principal); M25.532 Pain in left wrist; F17.200 Nicotine dependence, unspecified, uncomplicated
CPT/HCPCS: 73080; 73130; 99284; 96374; 96376; J1171